=== PATIENT | male | born 1975 | race Caucasian/White ===

== ENCOUNTER 2020-08-31 08:55 | Day surgery (SDC) | payer MEDICAID, SELFPAY ==
[2020-08-28 16:21] VITALS: BMI 27.4
--- NOTE | 2020-08-30 13:51 | P.CONAN_ITS ---
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 Murmur, cardiac Muscle spasm of back OCD (obsessive compulsive disorder) PVD (peripheral vascular disease) Surgical History Surgical History H/O heart artery stent History of aortic coarctation repair Hx of appendectomy Hx of left inguinal hernia repair Social History Social History Smoking Status: Former smoker Smoking Quit Date: 2010 Use of substances other than those prescribed or required for medical reasons: No Advance Directives: No Advance Directives Information Provided: No Advance Directives on File: No Meds Allergies Allergy/AdvReac Type Severity Reaction Status Date / Time risperidone [From Risperdal] Allergy Mild Angioedema Unverified 08/28/20 16:08 aripiprazole Allergy Unknown Anxiety Verified 08/28/20 16:08 strawberry [[place]] Allergy Unknown UNKNOWN Unverified 08/02/20 15:47 ziprasidone [From GEODON] Allergy Unknown WORKS THE Unverified 08/02/20 15:47 OPPOSITE From Effexor AdvReac Mild MAKES Uncoded 08/02/20 15:47 TONGUE FEEL FUNNY Home Medications Medication Instructions Recorded Confirmed Type aspirin [Aspir-81] 81 mg PO DAILY 08/28/20 08/28/20 History buprenorphine-naloxone [Suboxone] 1.5 film SUBLINGUAL DAILY 08/28/20 08/28/20 History clonazepam [Klonopin] 0.25 mg PO BID 08/28/20 08/31/20 History docusate sodium [Colace] 100 mg PO DAILY 08/28/20 08/28/20 History ipratropium-albuterol [DuoNeb] 3 ml INHALATION Q4-6H PRN 08/28/20 08/28/20 History levothyroxine 112 mcg PO DAILY 08/28/20 08/31/20 History naproxen 500 mg PO BID PRN 08/28/20 08/28/20 History sacubitril-valsartan [Entresto] 1 tab PO BID 08/28/20 08/31/20 History Exam Exam Date and Time: August 30, 2020 1351 Height,Weight and Vital Signs: Height 5 ft 6 in Weight 77.111 kg Assessment and Plan Assessment Anesthesia Assessment: Chart Reviewed Documented by User: Rafael Michaud 08/31/20 09:43 [facility] Past Medical History Medical History ADHD Anxiety Aortic valve disease Asthma Back pain Bipolar 1 disorder CAD (coronary artery disease) Cardiomyopathy Coarctation of aorta Constipation Depression Hx of fracture of leg Hx of opioid abuse Hx pulmonary embolism Hypertension Hypothyroidism 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 Did not involve his temp going up. Mult surg since then, w no anesth problems.) Social History Social History Smoking Status: Former smoker Smoking Quit Date: 2010 Use of substances other than those prescribed or required for medical reasons: No Advance Directives: No Advance Directives Information Provided: No Advance Directives on File: No Meds Allergies Allergy/AdvReac Type Severity Reaction Status Date / Time risperidone [From Risperdal] Allergy Mild Angioedema Unverified 08/28/20 16:08 aripiprazole Allergy Unknown Anxiety Verified 08/28/20 16:08 strawberry [[place]] Allergy Unknown UNKNOWN Unverified 08/02/20 15:47 ziprasidone [From GEODON] Allergy Unknown WORKS THE Unverified 08/02/20 15:47 OPPOSITE From Effexor AdvReac Mild MAKES Uncoded 08/02/20 15:47 TONGUE FEEL FUNNY Home Medications Medication Instructions Recorded Confirmed Type aspirin [Aspir-81] 81 mg PO DAILY 08/28/20 08/28/20 History buprenorphine-naloxone [Suboxone] 1.5 film SUBLINGUAL DAILY 08/28/20 08/28/20 History clonazepam [Klonopin] 0.25 mg PO BID 08/28/20 08/31/20 History docusate sodium [Colace] 100 mg PO DAILY 08/28/20 08/28/20 History ipratropium-albuterol [DuoNeb] 3 ml INHALATION Q4-6H PRN 08/28/20 08/28/20 History levothyroxine 112 mcg PO DAILY 08/28/20 08/31/20 History naproxen 500 mg PO BID PRN 08/28/20 08/28/20 History sacubitril-valsartan [Entresto] 1 tab PO BID 08/28/20 08/31/20 History Exam Airway Mallampati Class: II TM Dist: <=3cm Neck ROM: Full Partial: Upper Heart: S4, no murmur. Lungs: clear Assessment and Plan Assessment Anesthesia Assessment: Anesthesia Plan Discussed and Chart Reviewed Final Anesthetic Review NPO: Yes ASA Class: III Final Preanesthetic Review: No Changes in Pt Med Stat, Meds/Allgs Chart Reviewed, Consent Obtained/Reviewed and Anes Risks/Benef Reviewed Patient Risk: High Procedure Risk: Low Assessment/Block/Sedation in SS: Assess/Block/Sedation-SS Anesthetic Plan Anesthetic Plan: GA and Agree w/ Assess. and Plan Disposition: Standard PACU
[2020-08-31] VITALS (7 sets, daily range): BP systolic 112–136; BP diastolic 70–94; PULSE 72–90; RESP 16; TEMP 36.2–36.6; O2SAT 95–97
--- NOTE | 2020-08-31 09:18 | MHC.SHP ---
Pre-Procedural Eval Section A The patient is an INPATIENT: No Changes since office visit: No Cold of Flu in the past 2 weeks, No New Medical Problems, No Changes in Medication and No Patient answered all questions The History & Physical has been completed within 30 days and I have reviewed it.: Yes Section B Chief Complaint: Umbilical Hernia Allergies: Allergies Allergy/AdvReac Type Severity Reaction Status Date / Time risperidone [From Risperdal] Allergy Mild Angioedema Unverified 08/28/20 16:08 aripiprazole Allergy Unknown Anxiety Verified 08/28/20 16:08 strawberry [[place]] Allergy Unknown UNKNOWN Unverified 08/02/20 15:47 ziprasidone [From GEODON] Allergy Unknown WORKS THE Unverified 08/02/20 15:47 OPPOSITE From Effexor AdvReac Mild MAKES Uncoded 08/02/20 15:47 TONGUE FEEL FUNNY Plan Patient has been examined and remains a candidate for the planned procedure
[2020-08-31] MEDS: Lactated Ringers 1,000 ML 50 ML IVCONT (09:40)
--- NOTE | 2020-08-31 10:39 | P.BOP_ITS ---
Brief Operative Note Date of procedure: 08/31/20 Pre-op diagnosis: umbilical hernia Post-op diagnosis: same Procedure: repair of umbilical hernia w/ mesh Implants: Ventralex mesh Surgeon: Wilfrido Cowan MD Anesthesia: GLMA Director Of Casino Marketing: Clara Mayer Estimated blood loss (mL): 5 Condition: stable Disposition: PACU
[2020-08-31] MEDS: oxyCODONE HCl Immed Release 5 MG TABLET 10 MG PO (10:58)
--- NOTE | 2020-08-31 11:22 | HO.POSTANES ---
Post Anesthesia Evaluation Post Anesthesia Evaluation Vital Signs: Vital Signs Temp Pulse Resp BP Pulse Ox 08/31/20 11:16 97.1 F 72 16 122/78 96 08/31/20 11:00 78 16 117/70 96 08/31/20 10:45 75 16 114/77 95 08/31/20 10:40 75 16 112/77 95 08/31/20 10:35 76 16 127/82 95 08/31/20 10:30 97.1 F 78 16 136/90 H 95 08/31/20 09:20 98 F 90 16 131/94 H 97 Anesthesia: General LMA Mental Status: Awake Pain Control: Satisfactory Nausea/Vomiting: None Hydration: Adequate Anesthesia-Related Issues: No Anes. Related Issues
--- NOTE | 2020-08-31 12:20 | OP_ITS ---
SURGEON: Wilfrido Cowan MD INDICATIONS: The patient is a 44-year-old male with note of reducible mass in the umbilicus consistent with umbilical hernia. In view of symptoms, he wanted this repaired. He understood the technique of repair with mesh. He was aware of the risks, benefits, and alternatives. He understood his risk was higher than average because of his multiple comorbid conditions including history of coarctation and heart disease. PREOPERATIVE DIAGNOSIS: Umbilical hernia. POSTOPERATIVE DIAGNOSIS: Umbilical hernia. PROCEDURE PERFORMED: Repair of umbilical hernia with Ventralex mesh. ESTIMATED BLOOD LOSS: COMPLICATIONS: ANESTHESIA: ASSISTANTS: Clara Mayer PA-C. SPECIMENS: DESCRIPTION OF PROCEDURE: He was brought to the operating room, placed supine on the table under general anesthesia via laryngeal mask airway. The periumbilical area was prepped and draped in usual sterile fashion. The surgical time-out was done. The patient received cefazolin 2 g IV preoperatively. I marked the planned line of incision on the supraumbilical margin transversely. This infiltrated with lidocaine 1%. I made an incision using blade #15. This was carried down to full-thickness skin and subcutaneous fat using electrocautery. We proceeded to lift the umbilicus as a flap off the rest of the subcutaneous layer. By doing so, we were able to visualize the hernia, which can contain only fat. We dissected the hernia off the rest of the umbilicus down to the fascial edge. We divided the fibrous adhesions tethering the hernia contents of the fascia using Metzenbaum scissors and electrocautery until we were able to completely free up the entire hernia contents. This was reduced. The defect measured about 1 cm in size. The margins around this were clear on palpation. We proceeded to use a small size Ventralex mesh in this position under the fascial defect. This was flattened as well. I secured this mesh using a Prolene 2-0 suture to each Prolene straps to the fascial edge on both sides. These fascial straps were then trimmed, flushed on the fascial level. I then proceeded to close the fascial defect with a [id number] Maxon 1 stitch. We tacked the umbilicus to the fascia to recreate the dimple. This was done using Dexon 3-0 sutures. The skin closure achieved with Dexon 4-0 subcuticular running stitch. Steri-Strips and dressings were applied. The incision was infiltrated with Marcaine 0.5% for postop analgesia. The patient tolerated the procedure well. There were no complications noted. Initial and final counts of sponges and instruments were correct. Estimated blood loss was minimal. The patient was extubated without difficulty and transferred to recovery room with stable vital signs. MD LATOYA Raphael/RIDDHI / [id number] MTDuJani
== END 2020-08-31 12:05 | disposition home or self-care (01) ==
PROVIDERS: PCP Family Medicine; Visit Provider Surgery
PROC: (CPT 49585; principal; 2020-08-31 10:00)
DX: K42.9 Umbilical hernia without obstruction or gangrene (principal); I10 Essential (primary) hypertension; J45.909 Unspecified asthma, uncomplicated; F11.20 Opioid dependence, uncomplicated; Z79.82 Long term (current) use of aspirin; Z79.899 Other long term (current) drug therapy; Z87.891 Personal history of nicotine dependence; Z88.8 Allergy status to other drugs, medicaments and biological substances; Z86.711 Personal history of pulmonary embolism
CPT/HCPCS: 49585; C1781; J0690; J3010

== ENCOUNTER → 2020-09-13 09:42 | Outpatient (BNVA) | payer MEDICAID, SELFPAY | PROVIDERS: PCP Family Medicine; Visit Provider Surgery | DX: Z09 Encounter for follow-up examination after completed treatment for conditions other than malignant neoplasm (principal); Z87.19 Personal history of other diseases of the digestive system | CPT/HCPCS: 99212 ==

== ENCOUNTER 2020-12-06 08:01 | Outpatient (REF) | payer MEDICAID, SELFPAY ==
--- NOTE | 2020-12-06 | US_ITS ---
EXAMINATION: US ABDOMEN COMPLETE CLINICAL INFORMATION: Right upper quadrant pain. History chronic hep C. COMPARISON: MRI abdomen 12/11/2015, ultrasound abdomen 12/07/2015 TECHNIQUE: Real-time imaging of the abdominal viscera. FINDINGS: PANCREAS: The visualized pancreas is normal in size and contour and echogenicity. Distal body and tail are partly obscured by bowel gas and not completely imaged. There is no pancreatic ductal dilatation. ABDOMINAL AORTA: The proximal abdominal aorta are unremarkable. Mid and distal aorta are obscured by bowel gas and not completely imaged. INFERIOR VENA CAVA: Visualized portions are normal. LIVER: The liver is normal in size and smooth in contour and uniform in echogenicity. There is borderline increased hepatic parenchymal echogenicity. No significant hepatic steatosis. No focal hepatic parenchymal lesion or intrahepatic ductal dilatation. Color Doppler shows portal flow towards the liver. GALLBLADDER: Normal. The gallbladder is physiologically distended without evidence of stones, sludge, polyps, wall thickening or pericholecystic fluid. COMMON BILE DUCT: Normal in caliber measuring 0.4 cm in diameter. RIGHT KIDNEY: Normal. No hydronephrosis. No renal calculi or focal parenchymal lesions. The kidney measures 10.5 cm in maximum dimension. LEFT KIDNEY: Normal. No hydronephrosis. No renal calculi or focal parenchymal lesions. The kidney measures 9.5 cm in maximum dimension. SPLEEN: Normal. The spleen measures 9.2 cm in maximum dimension. FREE FLUID: None. US/US abdomen complete IMPRESSION: 1. Liver normal in size and uniform in echogenicity. No focal parenchymal lesion. 2. Spleen normal in size. No ascites. Portal flow towards the liver. 3. No cholelithiasis or ductal dilatation.
== END 2020-12-06 08:02 | disposition home or self-care (01) ==
LOC: HO.US 08:01
PROVIDERS: PCP Nurse Practitioner Family; Visit Provider Nurse Practitioner Family
DX: R10.11 Right upper quadrant pain (principal)
CPT/HCPCS: 76700

== ENCOUNTER → 2021-07-31 13:43 | Outpatient (BNVA) | payer MEDICAID, SELFPAY | PROVIDERS: Referring Provider Family Medicine; Visit Provider Surgery | DX: R07.81 Pleurodynia (principal) | CPT/HCPCS: 99212 ==

== ENCOUNTER 2023-03-20 08:20 | Observation (INO) | payer MEDICAID, SELFPAY ==
--- NOTE | ~2023-03-20 | XR_ITS ---
EXAMINATION: XR HAND, RIGHT CLINICAL INFORMATION: Injury, pain COMPARISON: None available. TECHNIQUE: PA, lateral, and oblique views of the right hand. FINDINGS: The bones and soft tissues are normal. No fracture. Alignment is anatomic. Joint spaces are maintained. No erosions or soft tissue calcifications. No radiopaque foreign body. XR/XR hand RT 2V IMPRESSION: Normal right hand.
[2023-03-20 08:43] VITALS: BP 146/96; PULSE 97; RESP 16; TEMP 37.7; O2SAT 99; BMI 25.0
[2023-03-20 09:27] LABS: MANUAL DIFF FLAG NO
[2023-03-20 09:30] LABS: Basophils Percent Auto 0.5 % (0-2); Eosinophils Absolute Auto 0.1 X10*3/uL (0.0-0.4); Eosinophils Percent Auto 1.6 % (0-4); Hematocrit 44.1 % (42.0-52.0); Hemoglobin 15.3 g/dl (14.0-18.0); Imm Gran Abs Auto 0.02 X10*3/uL (0.00-0.03); Imm Gran Pct Auto 0.3 % (0.0-0.4); Lymphocytes Absolute Auto 1.1 X10*3/uL (1.2-4.9); Lymphocytes Percent Auto 14.6 % (20-40); Mean Corpuscular HGB Conc 34.7 g/dl (31.0-36.0); Mean Corpuscular Hemoglobin 28.4 pg (27.0-33.0); Mean Corpuscular Volume 81.8 fL (80.0-98.0); Mean Platelet Volume 10.6 fL (9.4-12.4); Monocytes Absolute Auto 0.5 X10*3/uL (0.1-1.2); Monocytes Percent Auto 6.1 % (2-11); Neutrophils Absolute Auto 5.8 x10*3/uL (2.0-8.3); Neutrophils Percent Auto 76.9 % (45-73); Platelet Count 167 X10*3/uL (160-400); Red Blood Count 5.39 X10*6/uL (4.60-5.80); Red Cell Distribution Width 12.9 % (11.0-16.0); White Blood Count 7.5 X10*3/uL (4.8-10.8)
[2023-03-20 09:58] LABS: Lactic Acid 0.9 mmol/L (0.5-2.0)
[2023-03-20 10:00] LABS: Alanine Aminotransferase 20 U/L (0-40); Albumin Level 4.7 g/dL (3.5-5.0); Alkaline Phosphatase 57 U/L (39-117); Anion Gap 12 (12-20); Aspartate Amino Transferase 20 U/L (5-37); Bilirubin Total 0.9 mg/dL (0.0-1.0); Blood Urea Nitrogen 18 mg/dL (9-16); C Reactive Protein 0.94 mg/dL (< or = 0.50); Carbon Dioxide 27 mmol/L (22-29); Chloride 105 mmol/L (96-108); Creatinine Clr Calc Pharmacy 89.5; Estimated Glomerular Filt Rate > 60; Glucose Random 104 mg/dL (60-115); Magnesium 1.7 mg/dL (1.6-2.6); Sodium 140 mmol/L (135-145); Total Protein 7.6 g/dL (6.5-8.0)
[2023-03-20 10:21] LABS: Erythrocyte Sedimentation Rate 2 MM/HR (0-15)
--- NOTE | 2023-03-20 11:15 | ED.GENADULT ---
HPI - General Adult General Chief complaint: Wound/Laceration Stated complaint: cat scratch r index finger Time Seen by Provider: 03/20/23 11:05 Source: patient Mode of arrival: ambulatory Limitations: no limitations History of Present Illness HPI narrative: This is a 47 years old male presented to emergency department complaining of a right index infection he states that he was scratched by a cat yesterday. The patient does have a comorbidity he has history of coarctation of the aorta, he has a cardiac stent. He stated he had a fever this morning as well. Onset (ago): day(s) (1) Location: upper extremity (rt index) Severity: moderate Quality: burning Pain Consistency: constant Relieving factors: none Exacerbating factors: none Related Data Home Medications Medication Instructions Recorded Confirmed aspirin 81 mg tablet,delayed 81 mg PO DAILY 08/28/20 07/31/21 release buprenorphine 4 mg-naloxone 1 mg 1.5 film sublingual DAILY 08/28/20 07/31/21 sublingual film (Suboxone) clonazepam 0.5 mg tablet (Klonopin) 0.25 mg PO BID 08/28/20 07/31/21 docusate sodium 100 mg capsule 100 mg PO DAILY 08/28/20 07/31/21 (Colace) ipratropium 0.5 mg-albuterol 3 mg 3 ml inhalation Q4-6H PRN 08/28/20 07/31/21 (2.5 mg base)/3 mL nebulization Shortness Of Breath Or Wheezing soln levothyroxine 112 mcg capsule 112 mcg PO DAILY 08/28/20 07/31/21 naproxen 500 mg tablet 500 mg PO BID PRN Pain 08/28/20 07/31/21 sacubitril 24 mg-valsartan 26 mg 1 tab PO BID 08/28/20 07/31/21 tablet (Entresto) levothyroxine 112 mcg tablet 112 mcg PO DAILY 07/31/21 07/31/21 tiotropium bromide 18 mcg capsule 1 cap inhalation DAILY 07/31/21 07/31/21 with inhalation device (Spiriva with HandiHaler) Previous Rx's Medication Instructions Recorded oxycodone-acetaminophen 5 mg-325 1 - 2 tab PO Q4-6H PRN pain #30 08/31/20 mg tablet (Percocet) tabs Allergies Allergy/AdvReac Type Severity Reaction Status Date / Time risperidone [From Risperdal] Allergy Mild Angioedema Verified 03/20/23 08:48 aripiprazole Allergy Unknown Anxiety Verified 03/20/23 08:48 strawberry [[place]] Allergy Unknown UNKNOWN Verified 03/20/23 08:48 ziprasidone [From GEODON] Allergy Unknown WORKS THE Verified 03/20/23 08:48 OPPOSITE From Effexor AdvReac Mild MAKES Uncoded 08/02/20 15:47 TONGUE FEEL FUNNY Review of Systems Constitutional: Constitutional: Reports no additional constitutional complaints and Reports fever(s) Respiratory: Respiratory: Reports no additional respiratory complaints Integumentary/Breasts: Skin/Breast: Reports system reviewed and no additional complaints, except as docu [facility] Past Medical History Medical History (Updated 03/20/23 @ 12:01 by Alli Wynn DO) ADHD Anxiety Aortic valve disease Asthma Back pain Bipolar 1 disorder CAD (coronary artery disease) Cardiomyopathy Coarctation of aorta Constipation Depression Hx of fracture of leg Hx of opioid abuse Hx pulmonary embolism Hypertension Hypothyroidism 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 Murmur, cardiac Muscle spasm of back OCD (obsessive compulsive disorder) PVD (peripheral vascular disease) Rib pain Surgical History H/O heart artery stent History of aortic coarctation repair Hx of appendectomy Hx of left inguinal hernia repair Umbilical hernia Family History Family History Maternal Grandmother History of breast cancer Maternal Grandfather History of colon cancer Social History Social History Advance Directives: No Advance Directives Information Provided: Yes Physical Exam ED Vital Signs: Vital Signs - 24 hr 03/20/23 08:43 Temperature 99.8 F Pulse Rate 97 Respiratory Rate 16 Blood Pressure 146/96 H Pulse Oximetry 99 Oxygen Delivery Method Room Air BMI result Body Mass Index 25.0 Const General: cooperative and comfortable Nutritional Appearance: average body habitus Orientation/consciousness: patient oriented x3 HENMT Head: Yes normal to inspection General nose exam: Normal external nose present Face and sinus: Yes normal facial exam Mouth: Normal oral and palatal mucosa present Throat: Yes posterior oropharynx normal Neck Neck: Yes normal visual inspection and Yes full ROM Chest Chest palpation & inspection: normal inspection of the chest Resp Effort & Inspection: normal respiratory effort Cardio Jugular venous distension: no JVD Rate: regular rate Rhythm: regular rhythm GI Inspection: Yes normal to inspection Palpation (GI): Soft to palpation, not firm and nontender Percussion: Yes normal to percussion Neuro General: patient oriented x3 Extrem Other: He has had redness and swelling of the right index he has a streak of redness in the forearm Course Course Course Narrative: presented with redness rt index finger with lymphagitic streak rt forearm will admit Reevaluation(s) Reevaluation #1: seen by Hospitalist Procedures EJ/Peripheral Line Arm L: Time Out Performed: Yes Skin Cleansed in Sterile Fashion: Yes Size (gauge): 20 IV Secured and Dressing Applied: Yes Patient Tolerated Procedure: well Additional Comments: I was ashed by RN to place IV ,RN unable to establish IV access ,under US linear probe cannulated left brachial vein with 20 G catheter good flush good blood return Medical Decision Making Medical Decision Making [facility] Narrative: Patient presented with cellulitis of right index finger with a lymphangitic streak will need admission for IV antibiotic given the fact that he has stent in the left subclavian artery Differential Diagnosis Differential Diagnoses: The differential diagnosis associated with the presentation includes Cellulitis/abscess/sepsis Admission/Observation Consideration of admission/observation: Escalation of care including admission/observation considered Consult Healthcare Provider Management of the patient was discussed with: Hospitalist Lab Data [facility] Lab Attestation statement: I reviewed the patient's lab results. 03/20/23 09:22 03/20/23 09:21 Labs: Lab Results 03/20/23 03/20/23 03/20/23 Range/Units 09:20 09:21 09:21 WBC (4.8-10.8) X10*3/uL RBC (4.60-5.80) X10*6/uL Hgb (14.0-18.0) g/dl Hct (42.0-52.0) % MCV (80.0-98.0) fL MCH (27.0-33.0) pg MCHC (31.0-36.0) g/dl RDW (11.0-16.0) % Plt Count (160-400) X10*3/uL MPV (9.4-12.4) fL Immature Gran % (Auto) (0.0-0.4) % Neut % (Auto) (45-73) % Lymph % (Auto) (20-40) % [place] % (Auto) (2-11) % Eos % (Auto) (0-4) % Baso % (Auto) (0-2) % Lymph # (Auto) (1.2-4.9) X10*3/uL [place] # (Auto) (0.1-1.2) X10*3/uL Eos # (Auto) (0.0-0.4) X10*3/uL Baso # (Auto) (0.0-0.2) X10*3/uL Abs Immat Gran (auto) (0.00-0.03) X10*3/uL Absolute Neuts (auto) (2.0-8.3) x10*3/uL Absolute Nucleated RBC (0.0-0.012) X10*3/uL Nucleated RBC % (auto) (0.0-0.2) /100WBC ESR 2 (0-15) MM/HR Sodium 140 (135-145) mmol/L Potassium 4.0 (3.3-5.1) mmol/L Chloride 105 (96-108) mmol/L Carbon Dioxide 27 (22-29) mmol/L Anion Gap 12 (12-20) BUN 18 H (9-16) mg/dL Creatinine 0.91 (0.5-1.4) mg/dL Estim Creat Clear Calc 89.5 Estimated GFR > 60 Random Glucose 104 (60-115) mg/dL Lactic Acid 0.9 (0.5-2.0) mmol/L Calcium 10.0 (8.4-10.2) mg/dL Magnesium 1.7 (1.6-2.6) mg/dL Total Bilirubin 0.9 (0.0-1.0) mg/dL AST 20 (5-37) U/L ALT 20 (0-40) U/L Alkaline Phosphatase 57 (39-117) U/L C-Reactive Protein 0.94 H (< or = 0.50) mg/dL Total Protein 7.6 (6.5-8.0) g/dL Albumin 4.7 (3.5-5.0) g/dL 05/05/23 Range/Units 09:22 WBC 7.5 (4.8-10.8) X10*3/uL RBC 5.39 (4.60-5.80) X10*6/uL Hgb 15.3 (14.0-18.0) g/dl Hct 44.1 (42.0-52.0) % MCV 81.8 (80.0-98.0) fL MCH 28.4 (27.0-33.0) pg MCHC 34.7 (31.0-36.0) g/dl RDW 12.9 (11.0-16.0) % Plt Count 167 (160-400) X10*3/uL MPV 10.6 (9.4-12.4) fL Immature Gran % (Auto) 0.3 (0.0-0.4) % Neut % (Auto) 76.9 H (45-73) % Lymph % (Auto) 14.6 L (20-40) % [place] % (Auto) 6.1 (2-11) % Eos % (Auto) 1.6 (0-4) % Baso % (Auto) 0.5 (0-2) % Lymph # (Auto) 1.1 L (1.2-4.9) X10*3/uL [place] # (Auto) 0.5 (0.1-1.2) X10*3/uL Eos # (Auto) 0.1 (0.0-0.4) X10*3/uL Baso # (Auto) 0.0 (0.0-0.2) X10*3/uL Abs Immat Gran (auto) 0.02 (0.00-0.03) X10*3/uL Absolute Neuts (auto) 5.8 (2.0-8.3) x10*3/uL Absolute Nucleated RBC 0.000 (0.0-0.012) X10*3/uL Nucleated RBC % (auto) 0.0 (0.0-0.2) /100WBC ESR (0-15) MM/HR Sodium (135-145) mmol/L Potassium (3.3-5.1) mmol/L Chloride (96-108) mmol/L Carbon Dioxide (22-29) mmol/L Anion Gap (12-20) BUN (9-16) mg/dL Creatinine (0.5-1.4) mg/dL Estim Creat Clear Calc Estimated GFR Random Glucose (60-115) mg/dL Lactic Acid (0.5-2.0) mmol/L Calcium (8.4-10.2) mg/dL Magnesium (1.6-2.6) mg/dL Total Bilirubin (0.0-1.0) mg/dL AST (5-37) U/L ALT (0-40) U/L Alkaline Phosphatase (39-117) U/L C-Reactive Protein (< or = 0.50) mg/dL Total Protein (6.5-8.0) g/dL Albumin (3.5-5.0) g/dL Independent Interpretation I performed an independent interpretation of an: Plain X-Ray Interpretation: xray no fx Radiology Impression Discussion of test interpretation with radiology: I have reviewed the radiologist's reading. Discharge Plan Discharge Clinical Impression: Cellulitis of finger, right Patient Disposition: Admitted As Inpatient
--- NOTE | 2023-03-20 11:55 | PM.IMHP ---
History of Present Illness Date of Service: 03/20/23 Chief Complaint: infected right index finger 47-year-old male presents emergency department complaining of painful red finger with streak up his right forearm after being scratched by his cat the day before. He denies fever and chills. 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 Murmur, cardiac Muscle spasm of back OCD (obsessive compulsive disorder) PVD (peripheral vascular disease) Rib pain Family History Maternal Grandmother History of breast cancer Maternal Grandfather History of colon cancer Surgical History H/O heart artery stent History of aortic coarctation repair Hx of appendectomy Hx of left inguinal hernia repair Umbilical hernia Social History Advance Directives: No Advance Directives Information Provided: Yes Meds Allergies Allergy/AdvReac Type Severity Reaction Status Date / Time risperidone [From Risperdal] Allergy Mild Angioedema Verified 03/20/23 08:48 aripiprazole Allergy Unknown Anxiety Verified 03/20/23 08:48 strawberry [[place]] Allergy Unknown UNKNOWN Verified 03/20/23 08:48 ziprasidone [From GEODON] Allergy Unknown WORKS THE Verified 03/20/23 08:48 OPPOSITE From Effexor AdvReac Mild MAKES Uncoded 08/02/20 15:47 TONGUE FEEL FUNNY Active Medications: Current Medications Acetaminophen (Acetaminophen 325 Mg Tablet) 650 mg PO Q6H PRN PRN Reason: Pain, Mild (Pain Scale 1-3) Ondansetron HCl (Ondansetron Hcl 4 Mg/2 Ml Vial) 4 mg IVPUSH Q8H PRN PRN Reason: Nausea and Vomiting Oxycodone HCl (Oxycodone Hcl Immed Release 5 Mg Tablet) 5 mg PO Q6H PRN PRN Reason: Pain, Moderate(Pain Scale 4-6) Sodium Chloride (0.9 % Sodium Chloride Flush 3 Ml Syringe) 3 ml IVFLUSH [facility] Home Medications Medication Instructions Recorded Confirmed Last Taken Type aspirin 81 mg tablet,delayed 81 mg PO DAILY 08/28/20 07/31/21 Unknown History release buprenorphine 4 mg-naloxone 1 mg 1.5 film sublingual DAILY 08/28/20 07/31/21 Unknown History sublingual film (Suboxone) clonazepam 0.5 mg tablet (Klonopin) 0.25 mg PO BID 08/28/20 07/31/21 08/31/20 History docusate sodium 100 mg capsule 100 mg PO DAILY 08/28/20 07/31/21 Unknown History (Colace) ipratropium 0.5 mg-albuterol 3 mg 3 ml inhalation Q4-6H PRN 08/28/20 07/31/21 Unknown History (2.5 mg base)/3 mL nebulization Shortness Of Breath Or Wheezing soln levothyroxine 112 mcg capsule 112 mcg PO DAILY 08/28/20 07/31/21 08/31/20 History naproxen 500 mg tablet 500 mg PO BID PRN Pain 08/28/20 07/31/21 Unknown History sacubitril 24 mg-valsartan 26 mg 1 tab PO BID 08/28/20 07/31/21 08/31/20 History tablet (Entresto) levothyroxine 112 mcg tablet 112 mcg PO DAILY 07/31/21 07/31/21 Unknown History tiotropium bromide 18 mcg capsule 1 cap inhalation DAILY 07/31/21 07/31/21 Unknown History with inhalation device (Spiriva with HandiHaler) Physical Exam Vital Signs and Narrative: Vital Signs: Last Vital Signs Temp 99.8 F 03/20/23 08:43 Pulse 97 03/20/23 08:43 Resp 16 03/20/23 08:43 BP 146/96 H 03/20/23 08:43 Pulse Ox 99 03/20/23 08:43 O2 Del Method Room Air 03/20/23 08:43 BMI result Body Mass Index 25.0 Const: Other: Awake alert no acute distress Resp: Other: Clear to auscultation bilaterally no rales rhonchi wheezes Cardio: Other: No S4; positive S1-S2; no S3 murmurs rubs or gallops GI: Other: Soft nontender nondistended normoactive bowel sounds Skin: Other: Right index finger edematous and erythematous with red line extending from index finger to right antecubital fossa Extrem: Other: No edema bilaterally Results Labs 03/20/23 09:22 03/20/23 09:21 Labs: Laboratory Results - last 24 hr 03/20/23 03/20/23 03/20/23 09:20 09:21 09:21 MCV MCH MCHC RDW Plt Count MPV Immature Gran % (Auto) Neut % (Auto) Lymph % (Auto) [place] % (Auto) Eos % (Auto) Baso % (Auto) Lymph # (Auto) [place] # (Auto) Eos # (Auto) Baso # (Auto) Abs Immat Gran (auto) Absolute Neuts (auto) Absolute Nucleated RBC Nucleated RBC % (auto) ESR 2 Anion Gap 12 Estim Creat Clear Calc 89.5 Estimated GFR > 60 Random Glucose 104 Lactic Acid 0.9 Calcium 10.0 Magnesium 1.7 Total Bilirubin 0.9 AST 20 ALT 20 Alkaline Phosphatase 57 C-Reactive Protein 0.94 H Total Protein 7.6 Albumin 4.7 03/20/23 09:22 MCV 81.8 MCH 28.4 MCHC 34.7 RDW 12.9 Plt Count 167 MPV 10.6 Immature Gran % (Auto) 0.3 Neut % (Auto) 76.9 H Lymph % (Auto) 14.6 L [place] % (Auto) 6.1 Eos % (Auto) 1.6 Baso % (Auto) 0.5 Lymph # (Auto) 1.1 L [place] # (Auto) 0.5 Eos # (Auto) 0.1 Baso # (Auto) 0.0 Abs Immat Gran (auto) 0.02 Absolute Neuts (auto) 5.8 Absolute Nucleated RBC 0.000 Nucleated RBC % (auto) 0.0 ESR Anion Gap Estim Creat Clear Calc Estimated GFR Random Glucose Lactic Acid Calcium Magnesium Total Bilirubin AST ALT Alkaline Phosphatase C-Reactive Protein Total Protein Albumin Imaging Radiologist's Impressions: Impressions Hand X-Ray 03/20/23 09:08 IMPRESSION: Normal right hand. Assessment and Plan (1) Cellulitis of finger, right: Status: Acute (2) Hypothyroidism: Status: Acute (3) Coarctation of aorta: Status: Acute Plan 47-year-old male presents with infected right index finger and streak up right forearm after being bitten by his cat 24 hours prior. He will be admitted for treatment of cellulitis cultures pending 1. Cellulitis right index finger -Zosyn q.6 hours -oxycodone p.r.n. for pain 2. Coarctation of aorta -continue aspirin/Entresto at outpatient dosing -no active issues related to this admission 3. Hypothyroidism -continue levothyroxine at outpatient dosing 4. History of opioid abuse -Addiction Medicine consult -continue Suboxone as they recommend Full code Ambulatory Will require 1 midnight going forward for 24 hours of IV antibiotics. Likely discharge in a.m. on oral therapies Time Spent With Patient Time: Total time managing care of this patient today ____ minutes. Quality Stroke Does the patient have a stroke diagnosis?: No VTE Prior VTE?: No VTE Risk Level:: Medical - low VTE Device Contraindication: Treatment Not Indicated VTE Drug Contraindication: Treatment Not Indicated
[2023-03-20] MEDS: Piperacillin Sodium/Tazobactam 4.5 GM in 0.9 % Sodium Chloride 100 ML IV ×3 (12:33→23:28)
[2023-03-20] MEDS: oxyCODONE HCl Immed Release 5 MG TABLET PO (12:35)
[2023-03-20] MEDS: Acetaminophen 325 MG TABLET 650 MG PO (12:35)
--- NOTE | 2023-03-20 12:39 | MHC.RECOVRN ---
Received Addiction Consult for pt with hx OUD, currently prescribed Suboxone. Chart reviewed. Per Sigifredo, pt is engaged in treatment at the [facility]. Pt to continue Suboxone as prescribed. Discussed with Elena Bazan APRN.
[2023-03-20 13:39] VITALS: BP 100/62; PULSE 83; RESP 14; TEMP 36.7; O2SAT 96
[2023-03-20 15:39] VITALS: BP 125/80; PULSE 76; RESP 18; TEMP 36.3; O2SAT 98
--- NOTE | 2023-03-20 16:09 | PHA.MEDREC ---
Pharmacy Consult ? Medication Reconciliation Pharmacy has completed the medication reconciliation. Confirmed med list with patient. He states he only uses meds for constipation when needed and spiriva is only when he gets sick. Says spiriva was last used about a year ago so it was left off of med list. Claim history states suboxone is 1 film daily but he says 1/2 film bid.
[2023-03-20] MEDS: 0.9 % Sodium Chloride Flush 3 ML SYRINGE IVFLUSH ×2 (16:11→20:37)
[2023-03-20 19:24] VITALS: BP 107/67; PULSE 74; RESP 18; TEMP 36.5; O2SAT 98
[2023-03-20] MEDS: Melatonin 3 MG TABLET 6 MG PO (20:36)
[2023-03-21 03:29] VITALS: BP 102/58; PULSE 71; RESP 14; TEMP 37.1; O2SAT 99
[2023-03-21] MEDS: Levothyroxine Sodium 112 MCG TABLET PO (05:23)
[2023-03-21] MEDS: Piperacillin Sodium/Tazobactam 4.5 GM in 0.9 % Sodium Chloride 100 ML IV (05:23)
[2023-03-21 08:00] VITALS: BP 103/62; PULSE 96; RESP 16; TEMP 37.1; O2SAT 97
[2023-03-21] MEDS: Sacubitril/Valsartan 24/26 1 TAB TABLET PO (08:26)
[2023-03-21] MEDS: Buprenorphine/Naloxone 4/1 mg FILM 1 FILM SUBLINGUAL (08:26)
--- NOTE | 2023-03-21 09:24 | PM.DS ---
DS: Providers Provider Date of Service: 03/21/23 Date of admission: 03/20/23 11:48 Date of discharge: 03/21/23 Primary care physician: Elayne Alfredo MD Consults: 03/20/23 12:04 Addiction Medicine Routine Consulting Provider: Addiction Covering Reason for consultation: History of opioid abuse on Suboxone Has provider been notified: No DS: Diagnosis Discharge Diagnosis (1) Cellulitis of finger, right: Status: Acute (2) Hypothyroidism: Status: Acute (3) Coarctation of aorta: Status: Acute DS: Summary Hospital Course Hospital Course: 47-year-old male presents emergency department complaining of painful red finger with streak up his right forearm after being scratched by his cat the day before.? He denies fever and chills. Hospital Course Admitted to hospital and started on Zosyn q.6 hours. After 24 hours, all erythema has resolved and he has full range of motion. He has remained afebrile. At this time he is medically acceptable to be discharged to complete 1 week of Augmentin. He will follow-up with his PCP in 1 week if there is no improvement Time Spent with Patient Time attestation: Total time managing care of this patient today ____ minutes. Discharge coordination time: Greater than 30 minutes Quality: Safe Use of Opioids Does Pt have an Active Cancer Diagnosis on the Problem List?: No Quality: Stroke Does the patient have a stroke diagnosis?: No Physical Exam Vital Signs: Vital Signs: Last Vital Signs Temp 98.8 F 03/21/23 08:00 Pulse 96 03/21/23 08:00 Resp 16 03/21/23 08:00 BP 103/62 03/21/23 08:00 Pulse Ox 97 03/21/23 08:00 O2 Del Method Room Air 03/21/23 08:00 BMI result Body Mass Index 25.0 Const: Other: Awake alert no acute distress Resp: Other: Clear to auscultation bilaterally no rales rhonchi wheezes Cardio: Other: No S4; positive S1-S2; no S3 murmurs rubs or gallops GI: Other: Soft nontender nondistended normoactive bowel sounds Skin: Other: Right index finger without focal findings. All erythema resolved. Full range of motion Extrem: Other: No edema bilaterally DS: Data Data Completed and Pending Labs on day of discharge: Laboratory Results - last 24 hr 05/05/23 05/05/23 05/05/23 09:20 09:21 09:21 WBC RBC Hgb Hct MCV MCH MCHC RDW Plt Count MPV Immature Gran % (Auto) Neut % (Auto) Lymph % (Auto) [place] % (Auto) Eos % (Auto) Baso % (Auto) Lymph # (Auto) [place] # (Auto) Eos # (Auto) Baso # (Auto) Abs Immat Gran (auto) Absolute Neuts (auto) Absolute Nucleated RBC Nucleated RBC % (auto) ESR 2 Sodium 140 Potassium 4.0 Chloride 105 Carbon Dioxide 27 Anion Gap 12 BUN 18 H Creatinine 0.91 Estim Creat Clear Calc 89.5 Estimated GFR > 60 Random Glucose 104 Lactic Acid 0.9 Calcium 10.0 Magnesium 1.7 Total Bilirubin 0.9 AST 20 ALT 20 Alkaline Phosphatase 57 C-Reactive Protein 0.94 H Total Protein 7.6 Albumin 4.7 03/20/23 09:22 WBC 7.5 RBC 5.39 Hgb 15.3 Hct 44.1 MCV 81.8 MCH 28.4 MCHC 34.7 RDW 12.9 Plt Count 167 MPV 10.6 Immature Gran % (Auto) 0.3 Neut % (Auto) 76.9 H Lymph % (Auto) 14.6 L [place] % (Auto) 6.1 Eos % (Auto) 1.6 Baso % (Auto) 0.5 Lymph # (Auto) 1.1 L [place] # (Auto) 0.5 Eos # (Auto) 0.1 Baso # (Auto) 0.0 Abs Immat Gran (auto) 0.02 Absolute Neuts (auto) 5.8 Absolute Nucleated RBC 0.000 Nucleated RBC % (auto) 0.0 ESR Sodium Potassium Chloride Carbon Dioxide Anion Gap BUN Creatinine Estim Creat Clear Calc Estimated GFR Random Glucose Lactic Acid Calcium Magnesium Total Bilirubin AST ALT Alkaline Phosphatase C-Reactive Protein Total Protein Albumin Discharge Plan Discharge Anticipated Discharge Date/Time: 03/21/23 09:21 Patient Disposition: Home, Self-Care Discharge Diagnosis: Left ring finger cellulitis Referrals: Elayne Alfredo MD [Primary Care Provider] - 1 Week Discharge Medications: New amoxicillin-pot clavulanate 875-125 mg tablet 1 tab PO BID Qty: 14 0RF Continued docusate sodium [Colace] 100 mg Capsule 100 mg PO BID PRN (Reason: Constipation) naproxen 500 mg Tablet 500 mg PO BID PRN (Reason: Pain) Entresto 24-26 mg Tablet 1 tab PO BID melatonin 5 mg tablet 5 mg PO BEDTIME buprenorphine-naloxone [Suboxone] 8-2 mg film 0.5 film sublingual BID sennosides [senna] 8.6 mg tablet 8.6 mg PO BEDTIME PRN (Reason: Constipation) clonazepam 0.5 mg tablet 0.5 mg PO BID PRN (Reason: Anxiety) albuterol sulfate [ProAir HFA] 90 mcg/actuation HFA aerosol inhaler 2 puff INHALATION Q4-6H PRN (Reason: Shortness Of Breath Or Wheezing) Excedrin Migraine 250-250-65 mg Tablet 2 tab PO Q6H PRN (Reason: Migraine Headache) levothyroxine 112 mcg tablet 112 mcg PO DAILY@0600 Discharge Orders: Discharge Order (Routine); Ordered 03/21/23 Ordered By: Alli Wynn Diet: Advance to usual diet Activity on Discharge: As tolerated Stand Alone Forms: Patient Portal Discharge page Care Plan Goals: Resume all pre-hospital medications Health Concerns: Augmentin 875 twice daily for 7 days Plan of Treatment: Follow-up with PCP in 1 week if no improvement Assessment: See discharge summary
--- NOTE | 2023-03-21 09:35 | MHC.CM.PN ---
PT DISCHARGED HOME TODAY WITH NO SERVICES VIA PRIVATE TRANSPORT
== END 2023-03-21 09:55 | disposition home or self-care (01) ==
LOC: HO.ED 11:43 → HO.EDOVER 11:55 → HO.S3 12:01
PROVIDERS: Physician Assistant Medical; Admitting Provider Hospitalist; Emergency Provider Emergency Medicine; PCP Family Medicine; Visit Provider Hospitalist
DX: L03.011 Cellulitis of right finger (principal); I10 Essential (primary) hypertension; E03.9 Hypothyroidism, unspecified; Q25.1 Coarctation of aorta; F11.20 Opioid dependence, uncomplicated; Z95.2 Presence of prosthetic heart valve; Z79.82 Long term (current) use of aspirin; Z79.899 Other long term (current) drug therapy
CPT/HCPCS: 36415; 73120; 80053; 83605; 83735; 85025; 85652; 86140; 87040; 96360; 96365; 96366; 96375; 99221; 99285; J2543

== ENCOUNTER 2024-09-10 19:00 | Emergency (ER) | payer MEDICAID, SELFPAY ==
--- NOTE | ~2024-09-10 | XR_ITS ---
EXAMINATION: XR CHEST 2 VIEWS CLINICAL INFORMATION: Cough. COMPARISON: Radiographs dated 09/21/2019 TECHNIQUE: Frontal and lateral views of the chest were obtained. FINDINGS: The heart, great vessels, pulmonary vasculature and mediastinum are normal. A stent is again seen in the proximal descending thoracic aorta. The lungs show no focal infiltrate, effusion or pneumothorax. There is no acute osseous abnormality. XR/XR chest 2V IMPRESSION: No active cardiopulmonary disease. Electronically signed by: Mark Anthony Cortes MD 09/10/2024 09:40 PM EDT RP
[2024-09-10 19:22] VITALS: BP 120/79; PULSE 117; RESP 18; TEMP 39.3; O2SAT 96; BMI 25.6
--- NOTE | 2024-09-10 19:23 | ED_ITS ---
HPI - General Adult General Chief complaint: Upper Respiratory Symptoms Stated complaint: congested cough, runny nose, h/a Time Seen by Provider: 09/10/24 20:58 Source: patient Mode of arrival: ambulatory Limitations: no limitations History of Present Illness ED Provider: ANTON FRANCO narrative: 48 yo male with PMH of asthma, opiate use disorder, HTN, CAD s/p stent, hypothyroidism, s/p repair of aorta coarctation here with c/o cough, chills, headaches, not feeling well for the past 1 week. He was exposed to his son who has been dx with pneumonia. Patient is able to take his medications, eat and drink. He did not take anything at home prior to arrival for fever. He denies chest pain. They did not travel or have exposure prior to this illness. MD complaint: URI Onset (ago): week(s) (1) Location: chest Radiation: non-radiation Severity: moderate Relieving factors: rest Exacerbating factors: movement Associated symptoms: cough, fever/chills, headaches, loss of appetite, malaise and shortness of breath Treatments prior to arrival: none Related Data Home Medications ?Medication ?Instructions ?Recorded ?Confirmed docusate sodium 100 mg capsule 100 mg PO BID PRN Constipation 08/28/20 03/20/23 (Colace) naproxen 500 mg tablet 500 mg PO BID PRN Pain 08/28/20 03/20/23 sacubitril 24 mg-valsartan 26 mg 1 tab PO BID 08/28/20 03/20/23 tablet (Entresto) levothyroxine 112 mcg tablet 112 mcg PO DAILY@0600 07/31/21 03/20/23 albuterol sulfate 90 mcg/actuation 2 puff inhalation Q4-6H PRN 03/20/23 03/20/23 aerosol inhaler (ProAir HFA) Shortness Of Breath Or Wheezing yxphwky-eilsqvevewoig-npmaxtct 250 2 tab PO Q6H PRN Migraine Headache 03/20/23 03/20/23 mg-250 mg-65 mg tablet (Excedrin Migraine) buprenorphine 8 mg-naloxone 2 mg 0.5 film sublingual BID 03/20/23 03/20/23 sublingual film (Suboxone) clonazepam 0.5 mg tablet 0.5 mg PO BID PRN Anxiety 03/20/23 03/20/23 melatonin 5 mg tablet 5 mg PO BEDTIME 03/20/23 03/20/23 sennosides 8.6 mg tablet (senna) 8.6 mg PO BEDTIME PRN Constipation 03/20/23 03/20/23 Previous Rx's ?Medication ?Instructions ?Recorded amoxicillin 875 mg-potassium 1 tab PO BID #14 tabs 03/21/23 clavulanate 125 mg tablet cefuroxime axetil 500 mg tablet 500 mg PO BID 10 days #20 tabs 09/10/24 doxycycline hyclate 100 mg capsule 100 mg PO BID 10 days #20 caps 09/10/24 Allergies Allergy/AdvReac Type Severity Reaction Status Date / Time risperidone [From Risperdal] Allergy Mild Angioedema Verified 09/10/24 19:23 aripiprazole Allergy Unknown Anxiety Verified 09/10/24 19:23 strawberry [[place]] Allergy Unknown UNKNOWN Verified 09/10/24 19:23 ziprasidone [From GEODON] Allergy Unknown WORKS THE Verified 09/10/24 19:23 OPPOSITE From Effexor AdvReac Mild MAKES Uncoded 09/10/24 19:23 TONGUE FEEL FUNNY Review of Systems 2 Review of Systems: Constitutional : No Fever, pos Chills ENT/Mouth : No Hoarseness, No sore throat, No Rhinorrhea Eyes: No Redness, No Discharge, No Vision Changes Cardiovascular : No Chest Pain, positive SOB, positive Dyspnea on Exertion, No Edema Respiratory : positive Cough, pos Sputum, positive Wheezing, Gastrointestinal : No Nausea, No Vomiting, No Diarrhea, No abdominal Pain Genitourinary : No Dysuria, No Hematuria Musculoskeletal : No joint pain, No Myalgias Skin : No rash Neuro : No Weakness, No Numbness, No Headache Psych : No anxiety, depression All other systems reviewed and are negative [facility] Past Medical History Attestation statement: The following information was validated with the patient. 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 Hx pulmonary embolism Constipation Asthma ADHD Depression Anxiety Bipolar 1 disorder OCD (obsessive compulsive disorder) CAD (coronary artery disease) Hypertension Surgical History Umbilical hernia Hx of left inguinal hernia repair H/O heart artery stent Hx of appendectomy History of aortic coarctation repair Family History Family History Maternal Grandmother History of breast cancer Maternal Grandfather History of colon cancer Social History Social History Household Members: Spouse and Family Household Members Other:: temporarily with sister Housing: House Do you presently have visiting nurse or other home services: No Alcohol intake: unknown Patient Tobacco Use Status: Former Tobacco user Tobacco use type: Cigarette Smoked in Last 30 Days: No Second Hand Smoke Exposure: No Use of substances other than those prescribed or required for medical reasons: No Advance Directives: No Advance Directives Information Provided: No Physical Exam ED Vital Signs: Vital Signs - 24 hr 09/10/24 19:22 09/10/24 19:55 09/10/24 21:50 Temperature 102.7 F H 102.8 F H 99.0 F Pulse Rate 117 H 104 H 78 Respiratory Rate 18 15 14 Blood Pressure 120/79 108/69 95/58 L Pulse Oximetry 96 96 95 Oxygen Delivery Method Room Air Room Air Room Air 09/10/24 22:05 09/10/24 22:51 09/10/24 23:11 Temperature 98.9 F Pulse Rate 81 Respiratory Rate 17 Blood Pressure 123/77 123/77 Pulse Oximetry 98 98 Oxygen Delivery Method Room Air Room Air 09/10/24 23:11 Temperature 98.9 F Pulse Rate 81 Respiratory Rate 17 Blood Pressure 123/77 Pulse Oximetry 98 Oxygen Delivery Method Room Air BMI result Body Mass Index 25.6 Appearance: Alert. Oriented X3. No acute distress. Eyes: Pupils equal, round and reactive to light. ENT: Pharynx normal. Neck: Normal inspection. Neck supple. CVS: Normal heart rate and rhythm. Pulses normal. Respiratory: No respiratory distress. Breath sounds diminished LL base, no wheezes noted Abdomen: Soft and nontender. Skin: Skin warm and dry. Normal skin color. Normal skin turgor. Extremities: No lower extremity edema. No calf ttp Neuro: Oriented X 3. No motor deficit. No sensory deficit. Course Course Course Narrative: This is a Rapid Medical Examination (RME) performed by Inocencio Heck PA-C in triage. Full HPI, ROS, assessment and treatment plan per primary provider in the Main ED. 48 yo male hx of asthma-COPD, previous tobacco smoker here for eval of cough, congestion, headache, chills x2 wks. no documented fever. trialing tylenol/ motrin at home. son recently ill with pneumonia. +febrile and tachycardic Plan: viral swabs, cxr, baisc labs. tylenol given in triage. Medications Administered Discontinued Medications Generic Name Dose Route Start Last Admin Trade Name Freq PRN Reason Stop Dose Admin Acetaminophen 975 mg 09/10/24 19:27 09/10/24 19:30 Acetaminophen 325 Mg Tablet PO 09/10/24 19:28 975 mg ONCE ONE Administration Albuterol Sulfate 2 puff 09/10/24 21:18 09/10/24 21:56 Albuterol Sulfate 90 Mcg 8 Gm Inhaler INHALE 09/10/24 21:19 2 puff ONCE ONE Administration Ceftriaxone Sodium 1 gm 09/10/24 21:17 09/10/24 22:01 Ceftriaxone Sodium 1 Gm Vial IVPUSH 09/10/24 21:18 1 gm ONCE ONE Administration Doxycycline Monohydrate 100 mg 09/10/24 21:17 09/10/24 21:55 Doxycycline Monohydrate 100 Mg Capsule PO 09/10/24 21:18 100 mg ONCE ONE Administration Ibuprofen 400 mg 09/10/24 20:21 09/10/24 20:23 Ibuprofen 400 Mg Tablet PO 09/10/24 20:22 400 mg ONCE ONE Administration Prednisone 40 mg 09/10/24 21:17 09/10/24 21:55 Prednisone 20 Mg Tablet PO 09/10/24 21:18 40 mg ONCE ONE Administration Medical Decision Making Medical Decision Making MDM Narrative: 48 yo male with PMH of asthma, opiate use disorder, HTN, CAD s/p stent, hypothyroidism here with c/o URI symptoms and pneumonia exposure at this time will need basic labs, EKG, CXR for pneumonia, viral panel. He is tolerating PO, he has no hypoxia or increased work of breathing. Will give first dose of antibiotics in the ED Differential Diagnosis Differential Diagnoses: The differential diagnosis associated with the presentation includes URI, viral syndrome, pneumonia Admission/Observation Consideration of admission/observation: Escalation of care including admission/observation considered no hypoxia, BP normal, stable for DC feels well, tolerating PO Lab Data MDM Lab Attestation statement: I reviewed the patient's lab results. 09/10/24 19:38 09/10/24 19:38 Labs: Lab Results 09/10/24 Range/Units 19:38 WBC 6.2 (4.8-10.8) X10*3/uL RBC 4.67 (4.60-5.80) X10*6/uL Hgb 13.7 L (14.0-18.0) g/dl Hct 38.5 L (42.0-52.0) % MCV 82.4 (80.0-98.0) fL MCH 29.3 (27.0-33.0) pg MCHC 35.6 (31.0-36.0) g/dl RDW 11.7 (11.0-16.0) % Plt Count 159 L (160-400) X10*3/uL MPV 9.8 (9.4-12.4) fL Immature Gran % (Auto) 0.5 H (0.0-0.4) % Neut % (Auto) 70.4 (45-73) % Lymph % (Auto) 16.9 L (20-40) % [place] % (Auto) 10.9 (2-11) % Eos % (Auto) 1.0 (0-4) % Baso % (Auto) 0.3 (0-2) % Lymph # (Auto) 1.0 L (1.2-4.9) X10*3/uL [place] # (Auto) 0.7 (0.1-1.2) X10*3/uL Eos # (Auto) 0.1 (0.0-0.4) X10*3/uL Baso # (Auto) 0.0 (0.0-0.2) X10*3/uL Abs Immat Gran (auto) 0.03 (0.00-0.03) X10*3/uL Absolute Neuts (auto) 4.4 (2.0-8.3) x10*3/uL Absolute Nucleated RBC 0.000 (0.0-0.012) X10*3/uL Nucleated RBC % (auto) 0.0 (0.0-0.2) /100WBC Sodium 136 (135-145) mmol/L Potassium 3.6 (3.3-5.1) mmol/L Chloride 100 (96-108) mmol/L Carbon Dioxide 27 (22-29) mmol/L Anion Gap 13 (12-20) BUN 16 (9-16) mg/dL Creatinine 0.96 (0.5-1.4) mg/dL Estim Creat Clear Calc 83.9 Estimated GFR > 60 Random Glucose 115 (60-115) mg/dL Calcium 9.2 D (8.4-10.2) mg/dL Magnesium 2.1 (1.6-2.6) mg/dL Total Bilirubin 0.9 (0.0-1.0) mg/dL AST 41 H (5-37) U/L ALT 41 H (0-40) U/L Alkaline Phosphatase 40 (39-117) U/L Total Protein 7.9 (6.5-8.0) g/dL Albumin 4.4 (3.5-5.0) g/dL Lipase 21 (8-78) U/L Influenza Type A (PCR) NEGATIVE (Negative) Influenza Type B (PCR) NEGATIVE (Negative) RSV RNA Qual (PCR) NEGATIVE (Negative) SARS-CoV-2 RNA (RT-PCR) NEGATIVE (Negative) Independent Interpretation I performed an independent interpretation of an: Plain X-Ray (+ LL pneumonia) Radiology Impression Discussion of test interpretation with radiology: I have reviewed the radiologist's reading. External Record Review External record reviewed: Outpatient record Prescription Management I considered prescription management with: Antibiotic Discharge Plan Discharge Clinical Impression: Pneumonia Patient Disposition: Home, Self-Care Instructions: Community Acquired Pneumonia (ED) Additional Instructions: negative for flu and covid hemoglobin slightly lower than usual 13.7 make sure your doctor monitors this your oxygen levels were normal you have a left lower lobe pneumonia on chest xray return at any time for worsening symptoms such as dizziness, weakness, unable to eat or drink, vomiting, difficulty breathing, chest pain, low blood pressures or any other concerns. Prescriptions: New doxycycline hyclate 100 mg capsule 100 mg PO BID 10 Days Qty: 20 0RF cefuroxime axetil 500 mg tablet 500 mg PO BID 10 Days Qty: 20 0RF No Action docusate sodium [Colace] 100 mg Capsule 100 mg PO BID PRN (Reason: Constipation) naproxen 500 mg Tablet 500 mg PO BID PRN (Reason: Pain) Entresto 24-26 mg Tablet 1 tab PO BID melatonin 5 mg tablet 5 mg PO BEDTIME buprenorphine-naloxone [Suboxone] 8-2 mg film 0.5 film sublingual BID sennosides [senna] 8.6 mg tablet 8.6 mg PO BEDTIME PRN (Reason: Constipation) clonazepam 0.5 mg tablet 0.5 mg PO BID PRN (Reason: Anxiety) albuterol sulfate [ProAir HFA] 90 mcg/actuation HFA aerosol inhaler 2 puff INHALATION Q4-6H PRN (Reason: Shortness Of Breath Or Wheezing) Excedrin Migraine 250-250-65 mg Tablet 2 tab PO Q6H PRN (Reason: Migraine Headache) amoxicillin-pot clavulanate 875-125 mg tablet 1 tab PO BID Qty: 14 0RF levothyroxine 112 mcg tablet 112 mcg PO DAILY@0600 Interventions: ED Discharge Assessment Last Done: 09/10/24 23:11 Discharge Date/Time: 09/10/24 23:11 Print Language: Bruneian
[2024-09-10] MEDS: Acetaminophen 325 MG TABLET 975 MG PO (19:30)
[2024-09-10 19:42] LABS: MANUAL DIFF FLAG NO
[2024-09-10 19:44] LABS: Basophils Percent Auto 0.3 % (0-2); Eosinophils Absolute Auto 0.1 X10*3/uL (0.0-0.4); Hematocrit 38.5 % (42.0-52.0); Hemoglobin 13.7 g/dl (14.0-18.0); Imm Gran Abs Auto 0.03 X10*3/uL (0.00-0.03); Imm Gran Pct Auto 0.5 % (0.0-0.4); Lymphocytes Percent Auto 16.9 % (20-40); Mean Corpuscular HGB Conc 35.6 g/dl (31.0-36.0); Mean Corpuscular Hemoglobin 29.3 pg (27.0-33.0); Mean Corpuscular Volume 82.4 fL (80.0-98.0); Mean Platelet Volume 9.8 fL (9.4-12.4); Monocytes Absolute Auto 0.7 X10*3/uL (0.1-1.2); Monocytes Percent Auto 10.9 % (2-11); Neutrophils Absolute Auto 4.4 x10*3/uL (2.0-8.3); Neutrophils Percent Auto 70.4 % (45-73); Platelet Count 159 X10*3/uL (160-400); Red Blood Count 4.67 X10*6/uL (4.60-5.80); Red Cell Distribution Width 11.7 % (11.0-16.0); White Blood Count 6.2 X10*3/uL (4.8-10.8)
[2024-09-10 19:55] VITALS: BP 108/69; PULSE 104; RESP 15; TEMP 39.3; O2SAT 96
[2024-09-10 20:05] LABS: Alanine Aminotransferase 41 U/L (0-40); Albumin Level 4.4 g/dL (3.5-5.0); Alkaline Phosphatase 40 U/L (39-117); Anion Gap 13 (12-20); Aspartate Amino Transferase 41 U/L (5-37); Bilirubin Total 0.9 mg/dL (0.0-1.0); Blood Urea Nitrogen 16 mg/dL (9-16); Calcium 9.2 mg/dL (8.4-10.2); Carbon Dioxide 27 mmol/L (22-29); Chloride 100 mmol/L (96-108); Creatinine Clr Calc Pharmacy 83.9; Estimated Glomerular Filt Rate > 60; Glucose Random 115 mg/dL (60-115); Lipase 21 U/L (8-78); Magnesium 2.1 mg/dL (1.6-2.6); Potassium 3.6 mmol/L (3.3-5.1); Sodium 136 mmol/L (135-145); Total Protein 7.9 g/dL (6.5-8.0)
[2024-09-10] MEDS: Ibuprofen 400 MG TABLET PO (20:23)
[2024-09-10 20:27] LABS: Influenza A PCR NEGATIVE (Negative); Influenza B PCR NEGATIVE (Negative); Resp Syncy Virus RNA Qual PCR NEGATIVE (Negative); SARS COV2 PCR INHOUSE NEGATIVE (Negative)
--- NOTE | 2024-09-10 21:15 | PC.NURSE ---
pt from home, a&ox4, respirations even and unlabored. pt reports x3 weeks of cough, congestion and sore throat. pt reports his son at home is sick at this time. pt denies sob, chest pain, n/v/d. provider aware of pt fever, pt medciated per jan.
[2024-09-10 21:50] VITALS: BP 95/58; PULSE 78; RESP 14; TEMP 37.2; O2SAT 95
[2024-09-10] MEDS: Doxycycline Monohydrate 100 MG CAPSULE PO (21:55)
[2024-09-10] MEDS: predniSONE 20 MG TABLET 40 MG PO (21:55)
[2024-09-10] MEDS: Albuterol Sulfate 90 MCG 8 GM INHALER 2 PUFF INHALE (21:56)
[2024-09-10] MEDS: cefTRIAXone sodium 1 GM VIAL IVPUSH (22:01)
--- NOTE | 2024-09-10 22:02 | PC.NURSE ---
20G placed in left forearm, pt medicated per jan, per Blood cultures not needed prior to antibiotic administration
[2024-09-10 22:05] VITALS: PULSE 98; O2SAT 98
[2024-09-10 22:51] VITALS: BP 123/77
[2024-09-10 23:11] VITALS: BP 123/77; PULSE 81; RESP 17; TEMP 37.2; O2SAT 98
== END 2024-09-10 23:11 | disposition home or self-care (01) ==
PROVIDERS: Physician Assistant Medical; Emergency Provider Emergency Medicine
DX: J18.9 Pneumonia, unspecified organism (principal); R50.9 Fever, unspecified; R06.02 Shortness of breath; Z03.818 Encounter for observation for suspected exposure to other biological agents ruled out; J45.909 Unspecified asthma, uncomplicated; Z87.891 Personal history of nicotine dependence
CPT/HCPCS: 0241U; 36415; 71046; 80053; 83690; 83735; 85025; 96374; 99284; 99285; J0696

== ENCOUNTER 2025-06-13 10:46 | Outpatient (REF) | payer MEDICAID, SELFPAY ==
--- OUTSIDE RECORDS SUMMARY | 2025-06-13 11:58 | XMS_ITS | Encounter Summary ---
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 Name Role Phone Elayne Alfredo MD Primary Care Provider [phone] Encounter Details Date Type Department Care Team ([facility] st Contact Info) Description 03/07/2024 Telephone [facility] [address] [place], [place] [phone] Elayne Alfredo MD [address] [place], [place] [phone] Social History Tobacco Use Types Packs/Day Years Used Date Smoking Tobacco: Former Cigarettes Passive Smoke Exposure: Past Smokeless Tobacco: Never Depression Answer Date Recorded Patient Health Questionnaire-9 Score 2 06/04/2023 Housing Stability Answer Date Recorded What is your housing situation today? I do not have housing (Staying with others, in a hotel, in a custodial, living outside on the street, on a beach, in a car, or in a park 02/25/[address] you li ve. Do you have problems with any of the following? None of the above 02/25/2024 Food Insecurity Answer Date Recorded Within the past 12 months, y ou worried that your food would run out before you got money to buy more: Sometimes True 2023 Within the past 12 months,th e food you bought just didn't last and you didn't have enough money to get more: Sometimes True 02/25/2024 Transportation Answer Date Recorded In the past 12 months, has l ack of transportation kept you from medical appts, meetings, work or from getting things needed for daily living? Yes, it has kept me from medical appointments or getting medications. 02/25/2024 Utilities Answer Date Recorded In the past 12 months, has t he electric, gas, oil or water company threatened to shut off services in your home? No 09/04/2023 Depression Answer Date Recorded Patient Health Questionnaire-2 Score 1 06/04/2023 Sex and Gender Information Value Date Recorded Sex Assigned at Male 09/15/2022 10:15 AM EDT Legal Sex Male 10:15 AM EDT Gender Identity Male 09/15/2022 10:15 AM EDT Sexual Orientation Straight 09/15/2022 10 :15 AM EDT documented as of this encounter Miscellaneous Notes * Telephone Encounter - Umesh Иван - 03/07/2024 9:56 AM EDT Tc from pt requested to r/s today's appt with pcp but theres nothing available, advised pt to call back March 16 for May. documented in this encounter Plan of Treatment Upcoming Encounters Date Type Department Care Team (Late st Contact Info) Description 06/19/2025 1:15 PM EDT Office Visit [facility] [address] [place] [phone] Elayne Alfredo MD [address] [place] [phone] 08/08/2025 1:30 PM EDT Office Visit [facility] [address] [place] [phone] Edgar Tejada MD [address] [place] [phone] documented as of this encounter Visit Diagnoses Not on filedocumented in this encounter Additional Health Concerns Assessment Noted Time PHQ-9 Depression Total Score: 2 06/04/20 23 11:01 AM EDT documented as of this encounter Care Teams Grain Broker And Market Operator Relationship Specialty Start Date End Date Elayne Alfredo MD [address] [place] [phone] PCP - General Family Medicine 11/16/18 documented as of this encounter
[2025-06-13 13:08] LABS: MANUAL DIFF FLAG NO
[2025-06-13 13:25] LABS: Hematocrit 39.7 % (42.0-52.0); Hemoglobin 14.0 g/dl (14.0-18.0); Imm Gran Abs Auto 0.02 X10*3/uL (0.00-0.03); Imm Gran Pct Auto 0.3 % (0.0-0.4); Lymphocytes Absolute Auto 1.5 X10*3/uL (1.2-4.9); Mean Corpuscular HGB Conc 35.3 g/dl (31.0-36.0); Mean Corpuscular Hemoglobin 30.0 pg (27.0-33.0); Mean Corpuscular Volume 85.0 fL (80.0-98.0); NRBC Abs Auto 0.000 X10*3/uL (0.0-0.012); NRBC Pct Auto 0.0 /100WBC (0.0-0.2); Platelet Count 175 X10*3/uL (160-400); Red Blood Count 4.67 X10*6/uL (4.60-5.80); Reticulocytes Absolute 0.125 X10*6/uL (0.026-0.095); White Blood Count 5.8 X10*3/uL (4.8-10.8)
[2025-06-13 13:34] LABS: Hemoglobin A1C 118.2816 umol/L; Total Hemoglobin (HGBA1C) 3666.4487 umol/L
[2025-06-13 13:56] LABS: Alanine Aminotransferase 20 U/L (0-40); Albumin Level 4.7 g/dL (3.5-5.0); Alkaline Phosphatase 46 U/L (39-117); Anion Gap 13 (12-20); Aspartate Amino Transferase 28 U/L (5-37); Blood Urea Nitrogen 19 mg/dL (9-16); Calcium 9.5 mg/dL (8.4-10.2); Carbon Dioxide 26 mmol/L (22-29); Chloride 106 mmol/L (96-108); Cholesterol 169 mg/dL (<200); Estimated Glomerular Filt Rate > 60; HDL Cholesterol 51 mg/dL (>40); Iron 119 mcg/dL (45-160); Percent Iron Saturation 44 % (15-50); Potassium 3.7 mmol/L (3.3-5.1); Sodium 141 mmol/L (135-145); Total Iron Binding Capacity 272 mcg/dL (228-428); Total Protein 7.6 g/dL (6.5-8.0); Triglycerides 200 mg/dL (<150); Unsaturated Iron Binding 153 ug/dL
[2025-06-13 14:06] LABS: Ferritin 485 ng/mL (20-250)
[2025-06-13 14:11] LABS: Vitamin B12 411 pg/mL (200-900)
[2025-06-13 14:43] LABS: CT PCR Urine NOT DETECTED (Not Detect.); NG PCR Urine NOT DETECTED (Not Detect.)
[2025-06-13 15:06] LABS: Folate 10.1 ng/mL (> or = 4.0)
[2025-06-13 15:08] LABS: Reflex LDLD? No
[2025-06-13 15:13] LABS: Free T4 (Free Thyroxine) 1.42 ng/dL (0.71-1.85)
[2025-06-14 03:36] LABS: Syphilis Screen Nonreactive (Nonreactive)
[2025-06-14 03:43] LABS: HBsAGNum1 0.27 S/CO (0.00-0.99); HIV Num 1 0.10 S/CO (0.00-0.99); Hepatitis B Surface Antigen Negative (Negative); ~HepC Num1 13.59 S/CO (0.00-0.79); ~Hepatitis C Antibody Reactive (Nonreactive)
[2025-06-16 01:03] LABS: HCV Log PCR <1.18 NOT DETECTED Log IU/mL (NOT DETECTED); HepC Viral Load <15 NOT DETECTED IU/mL (NOT DETECTED)
== END 2025-06-13 10:47 | disposition home or self-care (01) ==
LOC: HO.HHCL 10:46
PROVIDERS: PCP Family Medicine; Visit Provider Family Medicine
DX: Z11.4 Encounter for screening for human immunodeficiency virus [HIV] (principal); Z11.3 Encounter for screening for infections with a predominantly sexual mode of transmission; Z11.59 Encounter for screening for other viral diseases; Z13.1 Encounter for screening for diabetes mellitus; I10 Essential (primary) hypertension; E03.9 Hypothyroidism, unspecified; D64.9 Anemia, unspecified
CPT/HCPCS: 36415; 80053; 80061; 82607; 82728; 82746; 83036; 83540; 84439; 84443; 85025; 85045; 86780; 86803; 87340; 87389; 87491; 87522; 87591

== ENCOUNTER 2025-11-01 11:13 | Outpatient (AMB) | payer MEDICAID, SELFPAY ==
[2025-11-01 11:18] VITALS: BP 107/64; PULSE 83; BMI 27.3
--- NOTE | 2025-11-01 11:18 | A.OFFVIS_ITS ---
Vital Signs 11/01/25 11:18 Height 5 ft 6 in Weight 168 lb 13.985 oz BMI 27.3 BP 107/64 Blood Pressure Location Rt brachial Position Sitting Pulse 83 Intake Visit Reasons: Colonoscopy screening Intake Note: New patient in office today for colonoscopy screening. CC: Patient reports constipation, abdominal bloating, a lot of gas, and occasional nausea. 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 He is referred by [facility]. PMX COPD/asthma Cardiomyopathy with only mildly reduced ejection fraction History of pulmonary embolism Hepatitis-C status post Harvoni treatment with SVR Hypothyroid Eczema PVD Opioid dependence -ON SUBOXONE Depression/OCD/bipolar disorder * SURGICAL HISTORY Appendectomy Aorta repair Coronary stent ORIF tibia fracture left Umbilical hernia repair * ALLERGIES Abilify Risperdal [place] extract * [employer] LABS: Laboratory Tests 06/13/25 10:55 WBC 5.8 Hgb 14.0 Hct 39.7 L Plt Count 175 Estimated GFR > 60 Total Bilirubin 0.6 AST 28 ALT 20 Alkaline Phosphatase 46 TSH 0.02 L Free T4 1.42 TODAY'S VISIT Prior scopes: No Bowel or upper GI problems: He controls CIC with senna, miralax and colace and non upper GI problems Cardiac or respiratory problems: He has asthma well controlled as is his cardiomyopathy Problems with anesthesia or sedation: No Infectious disease problems: Hep C s/p SVR/Harvoni Family history of colon cancer or polyps: No [facility] Medical History Rib pain Coarctation of aorta Murmur, cardiac Aortic valve disease Cardiomyopathy PVD (peripheral vascular disease) Hx of fracture of leg Hx of opioid abuse Muscle spasm of back Back pain Hypothyroidism 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 Hx pulmonary embolism Constipation Asthma ADHD Depression Anxiety Bipolar 1 disorder OCD (obsessive compulsive disorder) CAD (coronary artery disease) Hypertension Surgical History Umbilical hernia Hx of left inguinal hernia repair H/O heart artery stent Hx of appendectomy History of aortic coarctation repair Family History Maternal Grandmother History of breast cancer Maternal Grandfather History of colon cancer Social History Household Members: Spouse and Family Household Members Other:: temporarily with sister Housing: House Do you presently have visiting nurse or other home services: No Alcohol intake: unknown Patient Tobacco Use Status: Former Tobacco user Tobacco use type: Cigarette Second Hand Smoke Exposure: No Review of Systems Const Denies fatigue, Denies fever(s), Denies night sweats, Denies poor appetite and Denies weight loss ENT Reports Normal hearing present, Denies dysphagia, Denies odynophagia, Denies throat swelling and Denies tongue swelling Card Reports no additional complaints Resp Reports no additional complaints GI Details: Denies abdominal pain, Denies melena, Denies bloating, Denies hematochezia, Reports constipation, Denies GI cramping, Denies dysphagia, Denies excessive flatus, Denies early satiety, Denies heartburn, Denies diarrhea, Denies nausea, Denies odynophagia, Denies vomiting and Denies hematemesis Musc Details: Rib pain right side with movement Skin/Breast Denies pruritus, Denies lesions, Denies rash and Denies jaundice Neuro Reports Normal hearing present and Denies Abnormal speech present Endo Denies fatigue Aller/Immun Denies throat swelling and Denies tongue swelling Physical Exam Vital Signs: Last Vital Signs Pulse 83 11/01/25 11:18 BP 107/64 11/01/25 11:18 BMI result Body Mass Index 27.3 Const General: cooperative, no acute distress, well developed and well groomed Nutritional Appearance: average body habitus and well nourished Orientation/consciousness: oriented to person, oriented to place and oriented to time Limitations: No language barrier HEENT Head: Yes normocephalic and Yes atraumatic Eyes General: appearance normal, both eyes and all related structures Pupils: Equal, round and reactive pupils present Neck Neck: Yes normal visual inspection and Yes no lymphadenopathy Thyroid: Thyroid normal Resp Effort & Inspection: normal respiratory effort and able to speak in complete sentences Auscultation: clear to auscultation bilaterally Cardio Rate: regular rate Rhythm: regular rhythm Heart sounds: Normal, physiologic split S2 sound present Peripheral pulses: radial pulses present and posterior tibial pulses present GI Inspection: No distended and No Abdominal panniculus present Palpation (GI): Soft to palpation, nontender, no guarding, not rigid and No hepatosplenomegaly present Percussion: Yes normal to percussion Auscultation: normal bowel sounds Rectal Exam - Male: Yes deferred Skin General skin exam: no rashes or lesions noted, turgor normal, skin not dry, no jaundice, No spider nevi and no striae Rashes: no rashes Nails: normal Neuro General: oriented to person, oriented to place and oriented to time Cranial nerves: Yes Equal, round and reactive pupils present and Yes Normal hearing present Speech: No Abnormal speech present Extrem General: Yes normal to inspection, No clubbing, No cyanosis and No edema Psych Appearance: grossly normal and well kempt Mental Status: mental status grossly normal Speech and movement: Normal speech and movement present Affect: normal affect Attitude: cooperative Thought process: Normal thought process present and not confabulating Thought content: Normal thought content present Insight: Good insight present (Psych) Judgement: Good judgement present (Psych) Assessment & Plan Assessment & Plan (1) Pre-op examination: Code(s): Z01.818 - Encounter for other preprocedural examination Category: Medical (2) Opioid dependence on agonist therapy: Comment: ON SUBOXONE Code(s): F11.20 - Opioid dependence, uncomplicated Category: Medical Plan Prior scopes: No Bowel or upper GI problems: He controls CIC with senna, miralax and colace and non upper GI problems Cardiac or respiratory problems: He has asthma well controlled as is his cardiomyopathy Problems with anesthesia or sedation: No Infectious disease problems: Hep C s/p SVR/Harvoni Family history of colon cancer or polyps: No Orders: Referrals GI Procedure Notification Z01.818 - Encounter for other preprocedural examination Medications: New peg 3350-electrolytes 236-22.74-6.74 -5.86 gram (Golytely) until fecal effluent is clear; do not exceed a total volume of 2,000 mL 240 mL PO Q10M 4,000 mL 0RF 1 day Z12.11 - Encounter for screening for malignant neoplasm of colon bisacodyl (Dulcolax (bisacodyl)) 10 mg (2 x 5 mg) PO BEDTIME 8 tabs 0RF 2 days Coding Level of Care Code New Pt Level 3 (21543) Diagnoses Pre-op examination Z01.818 Opioid dependence on agonist therapy F11.20
--- OUTSIDE RECORDS SUMMARY | 2025-11-01 14:55 | XMS_ITS | Encounter Summary ---
Author Organization [employer] Address [address] [place] [address] Care Team Providers Care Film Developer Name Role Phone Elayne Alfredo MD Primary Care Provider [phone] Encounter Details Date Type Department Care Team ([facility] st Contact Info) Description 03/07/[address] [facility] [address] [place], [place] [phone] Elayne Alfredo MD [address] [place], [place] [phone] Social History Tobacco Use Types Packs/Day Years Used Date Smoking Tobacco: Former Cigarettes Passive Smoke Exposure: Past Smokeless Tobacco: Never Depression Answer Date Recorded Patient Health Questionnaire-9 Score 2 06/04/2023 Housing Stability Answer Date Recorded What is your housing situation today? I do not have housing (Staying with others, in a hotel, in a care home, living outside on the street, on a [...] encounter Miscellaneous Notes * Telephone Encounter - Umesharnulfo Oates - 03/07/2024 9:56 AM EDT Tc from pt requested to r/s today's appt with pcp but theres nothing available, advised pt to call back March 16 for May. documented in this encounter Plan of Treatment Upcoming Encounters Date Type Department Care Team (Late st Contact Info) Description 11/21/2025 1:15 PM EST Office Visit [facility] [address] [place] [phone] Elayne Alfredo MD [address] [place] [phone] 12/26/2025 1:00 PM EST Office Visit [facility] [address] [place] [phone] Edgar Tejada MD [address] [place] [phone] documented as of this encounter Visit Diagnoses Not on filedocumented in this encounter Additional Health Concerns Assessment Noted Time PHQ-9 Depression Total Score: 2 06/04/20 23 11:01 AM EDT documented as of this encounter Care Teams Film Developer Relationship Specialty Start Date End Date Elayne Alfredo MD [address] [place] [phone] PCP - General Family Medicine 11/16/18 documented as of this encounter
--- OUTSIDE RECORDS SUMMARY | 2025-11-01 14:55 | XMS_ITS | Encounter Summary ---
Author Organization [employer] Address [address] [facility] 7[address] [place] [address] Care Team Providers Care Enterprise Application Analyst Name Role Phone Elayne Alfredo MD Primary Care Provider [phone] Reason for Visit * Reason Comments Med Refill Encounter Details Date Type Department Care Team ([facility] st Contact Info) Description 03/16/[address] [facility] [address] [place], [place] [phone] Edgar Tejada MD [address] [place], [place] [phone] Uncomplicated opioid dependence (CMS/HCC) Social History Tobacco Use Types Packs/Day Years Used Date Smoking Tobacco: Former Cigarettes Passive Smoke Exposure: Past Smokeless Tobacco: Never Depression Answer Date Recorded Patient Health Questionnaire-9 Score 2 06/04/2023 Housing Stability Answer Date Recorded What is your housing situation today? I do not have housing (Staying with others, in a hotel, in a jail, living outside on the street, on a [...] AM EDT documented as of this encounter Plan of Treatment Upcoming Encounters Date Type Department Care Team (Late st Contact Info) Description 11/21/2025 1:15 PM EST Office Visit [facility]INE [address] [place] [phone] Elayne Alfredo MD [address] [place] [phone] 12/26/2025 1:00 PM EST Office Visit [facility] [address] [place] [phone] Edgar Tejada MD [address] [place] [address] [phone] documented as of this encounter Visit Diagnoses Diagnosis Uncomplicated opioid dependence (CMS/HCC) (HCC) documented in this encounter Additional Health Concerns Assessment Noted Time PHQ-9 Depression Total Score: 2 06/04/20 23 11:01 AM EDT documented as of this encounter Care Teams Enterprise Application Analyst Relationship Specialty Start Date End Date Elayne Alfredo MD [address] [place] [phone] PCP - General Family Medicine 11/16/18 documented as of this encounter
--- OUTSIDE RECORDS SUMMARY | 2025-11-01 14:56 | XMS_ITS | Encounter Summary ---
Author Organization [employer] Address [address] [facility] [facility] [address] [place] [address] Care Team Providers Care Tunnel Heading Inspector Name Role Phone Elayne Alfredo MD Primary Care Provider [phone] Reason for Visit * Reason Comments Med Refill Encounter Details Date Type Department Care Team ([facility] st Contact Info) Description 01/19/2024 Refill [facility] [address] [place], [place] [phone] Edgar Tejada MD [address] [place], [place] [phone] Uncomplicated opioid dependence (CMS/HCC) Social History Tobacco Use Types Packs/Day Years Used Date Smoking Tobacco: Former Cigarettes Passive Smoke Exposure: Past Smokeless Tobacco: Never Depression Answer Date Recorded Patient Health Questionnaire-9 Score 2 06/04/2023 Housing Stability Answer Date Recorded What is your housing situation today? I have zeynep oliver 09/04/[address] you li ve. Do you have problems with any of the following? None of the above 09/04/2023 Food Insecurity Answer Date Recorded Within the past 12 months, y ou worried that your food would run out before you got money to buy more: Never True 09/04/2023 Within the past 12 months,th e food you bought just didn't last and you didn't have enough money to get more: Never True Transportation Answer Date Recorded In the past 12 months, has l ack of transportation kept you from medical appts, meetings, work or from getting things needed for daily living? No 09/04/2023 Utilities Answer Date Recorded In the past [...] Description 11/21/2025 1:15 PM EST Office Visit [facility]INE [address] [place] [phone] Elayne Alfredo MD [address] [place] [address] [phone] 12/26/2025 1:00 PM EST Office Visit [facility] [address] [place] [address] [phone] Edgar Tejada MD [address] [place] [address] [phone] documented as of this encounter Visit Diagnoses Diagnosis Uncomplicated opioid dependence (CMS/HCC) (HCC) documented in this encounter Additional Health Concerns Assessment Noted Time PHQ-9 Depression Total Score: 2 06/04/20 23 11:01 AM EDT documented as of this encounter Care Teams Tunnel Heading Inspector Relationship Specialty Start Date End Date Elayne Alfredo MD [address] [place] [phone] PCP - General Family Medicine 11/16/18 documented as of this encounter
--- OUTSIDE RECORDS SUMMARY | 2025-11-01 14:56 | XMS_ITS | Encounter Summary ---
Author Organization [employer] Address [address] [place] [address] [address] [place] [address] Care Team Providers Care Electrical Assemblies Supervisor Name Role Phone Elayne Alfredo MD Primary Care Provider [phone] Reason for Visit * Reason Comments Med Refill Encounter Details Date Type Department Care Team (Late st Contact Info) Description 08/04/[address] [facility] [address] [place] [address] [phone] Gui Ramirez MD [address] [place] [address] [phone] Uncomplicated opioid dependence (CMS/HCC) Social History Tobacco Use Types Packs/Day Years Used Date Smoking Tobacco: Former Cigarettes Passive Smoke Exposure: Past Smokeless Tobacco: Never Depression Answer Date Recorded Patient Health Questionnaire-9 Score 2 06/04/2023 Depression Answer Date Recorded Patient Health Questionnaire-2 [...] Description 11/21/2025 1:15 PM EST Office Visit [facility] [address] [place] [address] [phone] Elayne Alfredo MD [address] [place] [address] [phone] 12/26/2025 1:00 PM EST Office Visit [facility] [address] [place] [address], [place] [address] Edgar Tejada MD [address] [place], [place] [phone] documented as of this encounter Visit Diagnoses Diagnosis Uncomplicated opioid dependence (CMS/HCC) (HCC) documented in this encounter Additional Health Concerns Assessment Noted Time PHQ-9 Depression Total Score: 2 06/04/20 23 11:01 AM EDT documented as of this encounter Care Teams Electrical Assemblies Supervisor Relationship Specialty Start Date End Date Elayne Alfredo MD [address] [place] [phone] PCP - General Family Medicine 11/16/18 documented as of this encounter
--- OUTSIDE RECORDS SUMMARY | 2025-11-01 14:56 | XMS_ITS | Encounter Summary ---
Author Organization [employer] Address [address] [place] [address] Care Team Providers Care Charge Auditor Name Role Phone Elayne Alfredo MD Primary Care Provider [phone] Encounter Details Date Type Department Care Team ([facility] st Contact Info) Description 05/22/2025 Orders Only [facility] [address], [place] [phone] Elayne Alfredo MD [address] [place], [place] [phone] Acquired hypothyroidism (Primary Dx); Essential hypertension; Heart failure with mildly reduced ejection fraction (HFmrEF) (CMS/HCC); History of hepatitis C; Anemia, unspecified type; Routine screening for STI (sexually transmitted infection); Screening for diabetes mellitus Social History Tobacco Use Types Packs/Day Years Used Date Smoking Tobacco: Former Cigarettes Passive Smoke Exposure: Past Smokeless Tobacco: Never Alcohol Answer Date Recorded Frequency of Alcohol Consumption Not on file 04/25/2024 Average Number of Drinks Not on file 024 Frequency of Binge Drinking Not on file 04/16 Score 0 04/25/2024 Depression Answer Date Recorded Patient Health Questionnaire-9 Score 2 06/04/2023 Housing Stability Answer Date Recorded What is your housing situation today? I do not have housing (Staying with others, in a hotel, in a mcfp, living outside on the street, on a [...] the past 12 months, has t he [employer], gas, oil or water company threatened to [...] Description 11/21/2025 1:15 PM EST Office Visit [facility] [address] [place] [phone] Elayne Alfredo MD [address] [place] [phone] 12/26/2025 1:00 PM EST Office Visit [facility] [address] [place] [phone] Edgar Tejada MD [address] [place] [phone] Scheduled Orders Name Type Priority Associated Diagnoses Orde r Schedule Chlamydia/N. Gonorrhoeae RNA, TMA, Urogenitial Microbiology Routine Routine screening for STI (sexually transmitted infection) Expected: 05/22/2025 (Approximate), Expires: 05/22/2026 Albumin, Random Urine W/Creatinine Lab Routine Essential hypertension Expected: 05/22/2025 (Approximate), Expires: 05/22/2026 documented as of this encounter Procedures Procedure Name Priority Date/Time Associated Diagnosis Comments SYPHILIS SCREEN Routine 06/13/2025 10:55 AM EDT Routine screening for STI (sexually transmitted infection) VITAMIN B12/FOLATE, SERUM PANEL Routine 06/13/2025 10:55 AM EDT Anemia, unspecified type TSH W/REFLEX TO FT4 Routine 06/13/2025 1 0:55 AM EDT Acquired hypothyroidism LIPID PANEL WITH REFLEX TO DIRECT LDL Routine 06/13/2025 10:55 AM EDT Essential hypertension CBC WITH AUTO DIFFERENTIAL Routine 06/13/2025 10:55 AM EDT Anemia, unspecified type HEPATITIS C AB W/REFL TO HCV RNA, QN, PCR Routine 06/13/2025 10:55 AM EDT Routine screening for STI (sexually transmitted infection) IRON AND TOTAL IRON BINDING CAPACITY Routine 06/13/2025 10:55 AM EDT Anemia, unspecified type HEPATITIS B SURFACE ANTIGEN, EIA Routine 06/13/2025 10:55 AM EDT Routine screening for STI (sexually transmitted infection) HIV 1/2 ANTIGEN/ANTIBODY, FOURTH GENERATION W/RFL Routine 06/13/2025 10:55 AM EDT Routine screening for STI (sexually transmitted infection) RETICULOCYTE COUNT Routine 06/13/2025 10 :55 AM EDT Anemia, unspecified type HEMOGLOBIN A1C Routine 06/13/2025 10:55 AM EDT Screening for diabetes mellitus FERRITIN Routine 06/13/2025 10:55 AM EDT Anemia, unspecified type COMPREHENSIVE METABOLIC PANEL Routine 06/13/2025 10:55 AM EDT Essential hypertension documented in this encounter Results * (ABNORMAL) Reticulocyte Count (06/13/2025 10:55 AM EDT) Reticulocytes Absolute 0.125(H) 0.026 - 0.095 X10*6/uL [facility] Immature Retic Fraction 13.6(H) 2.3 - 13.4 % [facility] Retic HGB Equivalent 33.3 30.0 - 35.0 pg [facility] Reticulocyte Percent 2.7(H) 0.5 - 1.8 % [facility] Blood Venous blood specimen / Unknown 06/13/2025 10:55 AM EDT 06/13/2025 1:01 PM EDT Elayne Alfredo MD LAB BLOOD ORDERABLES Final Resul t Performing Organization Address [facility] Co de Phone Number [facility] [address] [place] [phone] * Vitamin B12 (Cobalamin) and Folate Panel, Serum (06/13/2025 10:55 AM EDT) [facility] Vitamin B12 411 200 - 900 pg/mL [facility] Comment:NORMAL 200-900 PG/ML INDETERMINATE 160-199 PG/ML DEFICIENT < 160 PG/ML Folate 10.1 > or = 4.0 ng/mL [facility] Comment:Reference Values:> o r = 4.0 ng/mL< 4.0 ng/mL suggests folate deficiency Methotrexate, aminopterin and folinic acid(leucovorin) are chemotherapeutic agents whose molecularstructures are similar to folate; therefore, the Architectfolate assay cannot be used for patients using these drugs. Blood 06/13/2025 10:5 5 AM EDT 06/13/2025 1:22 PM EDT Elayne Alfredo MD LAB BLOOD ORDERABLES Final Resul t Performing Organization Address [facility] Co de Phone Number [facility] [address] [place] [address] [phone] * Iron And Total Iron Binding Capacity (06/13/2025 10:55 AM EDT) [facility] Iron 119 45 - 160 mcg/dL [facility] Total Iron Binding Capacity 272 228 - 428 mcg/dL [facility] Percent Iron Saturation 44 15 - 50 % [facility] Unsaturated Iron Binding 153 ug/dL [facility] Blood Venous blood specimen / Unknown 06/13/2025 10:55 AM EDT 06/13/2025 1:22 PM EDT Elayne Alfredo MD LAB BLOOD ORDERABLES Final Resul t Performing Organization Address [facility] de Phone Number [facility] [address] [place] [address] [phone] * (ABNORMAL) Ferritin (06/13/2025 10:55 AM EDT) Pathologist [facility] Ferritin 485(H) 20 - 250 ng/mL [facility] Blood Venous blood specimen / Unknown 06/13/2025 10:55 AM EDT 06/13/2025 1:22 PM EDT Elayne Alfredo MD LAB BLOOD ORDERABLES Final Resul t Performing Organization Address [facility] de Phone Number [facility] [address] [place] [address] [phone] * (ABNORMAL) CBC auto differential (06/13/2025 10:55 AM EDT) Pathologist [facility] White Blood Count 5.8 4.8 - 10.8 X10*3/uL [facility] Red Blood Count 4.67 4.60 - 5.80 X10*6/uL [facility] Hemoglobin 14.0 14.0 - 18.0 g/dl [facility] Hematocrit 39.7(L) 42.0 - 52.0 % [facility] Mean Corpuscular Volume 85.0 80.0 - 98.0 fL [facility] Mean Corpuscular Hemoglobin 30.0 27.0 - 33.0 pg [facility] Mean Corpuscular HGB Conc 35.3 31.0 - 36.0 g/dl [facility] Red Cell Distribution Width 13.0 11.0 - 16.0 % [facility] Platelet Count 175 160 - 400 X10*3/uL [facility] Mean Platelet Volume 10.8 9.4 - 12.4 fL [facility] Neutrophils Percent Auto 65.6 45 - 73 % [facility] Imm Gran Pct Auto 0.3 0.0 - 0.4 % [facility] Lymphocytes Percent Auto 25.3 20 - 40 % [facility] Monocytes Percent Auto 7.2 2 - 11 % [facility] Eosinophils Percent Auto 0.9 0 - 4 % [facility] Basophils Percent Auto 0.7 0 - 2 % [facility] NRBC Pct Auto 0.0 0.0 - 0.2 /100WBC [facility] Neutrophils Absolute Auto 3.8 2.0 - 8.3 x10*3/uL [facility] Imm Gran Abs Auto 0.02 0.00 - 0.03 X10*3/uL [facility] Lymphocytes Absolute Auto 1.5 1.2 - 4.9 X10*3/uL [facility] Monocytes Absolute Auto 0.4 0.1 - 1.2 X10*3/uL [facility] Eosinophils Absolute Auto 0.1 0.0 - 0.4 X10*3/uL [facility] Basophils Absolute Auto 0.0 0.0 - 0.2 X10*3/uL [facility] NRBC Abs Auto 0.000 0.0 - 0.012 X10*3/uL [facility] Blood Venous blood specimen / Unknown 06/13/2025 10:55 AM EDT 06/13/2025 1:01 PM EDT us Elayne Alfredo MD LAB BLOOD ORDERABLES Final Resul t [facility] [address] [place] [phone] * (ABNORMAL) Lipid Panel with Reflex to Direct LDL (06/13/2025 10:55 AM EDT) Triglycerides 200(H) <150 mg/dL [facility] Comment:Desirable Triglyceri de: less than 150 mg/dLBorderline High Triglyceride 150-199 mg/dLHigh Triglyceride: 200-499 mg/dLVery High Triglyceride: greater than or equal to 5OO mg/dL Cholesterol 169 <200 mg/dL [facility] Comment:Desirable Cholestero l: less than 200 mg/dLBorderline High Cholesterol: 200-239 mg/dLHigh Cholesterol: greater than 239 mg/dL LDL Cholesterol Calculated 78 <100 mg/dL [facility] Comment:Desirable LDL: less than 100 mg/dLNear Optimal/Above Optimal LDL: 110- 129 mg/dLBorderline High LDL: 130-159 mg/dLHigh LDL: 160-189 mg/dLVery High LDL: greater than or equal to 190 mg/dL HDL Cholesterol 51 >40 mg/dL [facility] Comment:Desirable HDL: great er than 40 mg/dL Note: This HDL assay may give artificially low results in patients with liver disease. Blood 06/13/2025 10:5 5 AM EDT 06/13/2025 1:22 PM EDT us Elayne Alfredo MD LAB BLOOD ORDERABLES Final Resul t [facility] [address] [place] [address] [phone] * (ABNORMAL) Comprehensive Metabolic Panel (06/13/2025 10:55 AM EDT) Sodium 141 135 - 145 mmol/L [facility] Potassium 3.7 3.3 - 5.1 mmol/L [facility] Chloride 106 96 - 108 mmol/L [facility] Carbon Dioxide 26 22 - 29 mmol/L [facility] Anion Gap 13 12 - 20 [facility] Urea Nitrogen (BUN) 19(H) 9 - 16 mg/dL [facility] Creatinine, Serum 0.94 0.5 - 1.4 mg/dL [facility] Estimated Glomerular Filt Rate >60 [facility] Comment:Chronic Kidney Disea se: Estimated GFR < 60 mL/min/[id number] Kidney Disease: Estimated GFR < 15 mL/min/1.73m2 Glucose 105 60 - 115 mg/dL [facility] Calcium 9.5 8.4 - 10.2 mg/dL [facility] Bilirubin, Total 0.6 0.0 - 1.0 mg/dL [facility] Aspartate Amino Transferase 28 5 - 37 U/L [facility] Alanine Aminotransferase 20 0 - 40 U/L [facility] Total Protein 7.6 6.5 - 8.0 g/dL [facility] Albumin Level 4.7 3.5 - 5.0 g/dL [facility] Alkaline Phosphatase 46 39 - 117 U/L [facility] Blood Venous blood specimen / Unknown 06/13/2025 10:55 AM EDT 06/13/2025 1:22 PM EDT us Elayne Alfredo MD LAB BLOOD ORDERABLES Final Resul t [facility] [address] [place] [address] [phone] * Hemoglobin A1c (06/13/2025 10:55 AM EDT) Hemoglobin A1c 5.1 <6.0 % [facility] Comment:Hemoglobin A1C Refer ence Range Adults: 4.8 - 6.0 % Non diabetic: < 6.0 % Goal: < 7.0 %Additional Action Suggested: > 8.0 %Note: Hemoglobin A1c results are invalid for patients with abnormal amounts of HbF. Blood transfusions may impact the HbA1c concentration in the patient sample. Estimated Average Glucose 100 mg/dL [facility] Comment:eAG = Estimated ave rage glucose which is %A1C expressed asaverage glucose, using the formula of the [id number] Glucose study (ADAG), Diabetes Care, Vol.31,#8,2007 Blood Venous blood specimen / Unknown 06/13/2025 10:55 AM EDT 06/13/2025 1:01 PM EDT Elayne Alfredo MD LAB BLOOD ORDERABLES Final Resul t Performing Organization Address [facility] de Phone Number [facility] [address] [place] [address] [phone] * (ABNORMAL) TSH with Reflex to Free T4 (06/13/2025 10:55 AM EDT) TSH reflex Free T4 0.02(L) 0.32 - 4.0 uIU/mL [facility] Blood 06/13/2025 10:5 5 AM EDT 06/13/2025 1:22 PM EDT Elayne Alfredo MD LAB BLOOD ORDERABLES Final Resul t Performing Organization Address [facility] de Phone Number [facility] [address] [place] [address] [phone] * Hepatitis B surface antigen, EIA (06/13/2025 10:55 AM EDT) Pathologist [facility] Hepatitis B Surface Ag Negative Negative [facility] Venous blood specimen / Unknown 06/13/2025 10:55 AM EDT 06/13/2025 1:22 PM EDT Elayne Alfredo MD LAB BLOOD ORDERABLES Final Resul t Performing Organization Address [facility] Co de Phone Number [facility] [address] [place] [address] [phone] * HIV-1/2 Antigen and Antibodies, Fourth Generation, with Reflexes (06/13/2025 10:55 AM EDT) HIV AB/AG Nonreactive Nonreactive [facility] Comment:HIV-1 p24 Ag and/or HIV-1/HIV-2 Ab not detected.A test result that is nonreactive does not exclude thepossibility of exposure to or infection with HIV-1 and/orHIV-2. Nonreactive results in this assay for individualswith prior exposure to HIV-1 and/or HIV-2 may be due toantigen and antibody levels that are below the limit ofdetection of this assay.The Gradient Xnity HIV Ag/Ab Combo assay result andsupplemental assay results should be interpreted inconjunction with the patient's clinical presentation,history and other laboratory results. If the results areinconsistent with clinical evidence, additional testing issuggested to confirm the result. Venous blood specimen / Unknown 06/13/2025 10:55 AM EDT 06/13/2025 1:22 PM EDT Elayne Alfredo MD LAB BLOOD ORDERABLES Final Resul t Performing Organization Address [facility] Co de Phone Number [facility] [address] [place] [address] [phone] * (ABNORMAL) Hepatitis C Antibody with Reflex to HCV, RNA, Quantitative, Real- Time PCR (06/13/2025 10:55 AM EDT) Hepatitis C Antibody Reactive( A) Nonreactive [facility] Comment:Presumptive evidence of antibodies to HCV. Venous blood specimen / Unknown 06/13/2025 10:55 AM EDT 06/13/2025 1:22 PM EDT Elayne Alfredo MD LAB BLOOD ORDERABLES Final Resul t Performing Organization Address City/[facility] Co de Phone Number [facility] [address] [place] [address] [phone] * Syphilis Screen (06/13/2025 10:55 AM EDT) Syphilis Screen Nonreactive Nonreactive [facility] 06/13/2025 10:5 5 AM EDT 06/13/2025 1:09 PM EDT Elayne Alfredo MD LAB BLOOD ORDERABLES Final Resul t [facility] [address] [place] [phone] documented in this encounter Visit Diagnoses Diagnosis Acquired hypothyroidism- Primary Unspecified hypothyroidism Essential hypertension Unspecified essential hypertension Heart failure with mildly reduced ejection fraction (HFmrEF) (HCC) History of hepatitis C Personal history of other infectious and parasitic disease Anemia, unspecified type Routine screening for STI (sexually transmitted infection) Screening examination for venereal disease Screening for diabetes mellitus documented in this encounter Additional Health Concerns Assessment Noted Time PHQ-9 Depression Total Score: 2 06/04/20 23 11:01 AM EDT documented as of this encounter Care Teams Charge Auditor Relationship Specialty Start Date End Date Elayne Alfredo MD [address] [place] [phone] PCP - General Family Medicine 11/16/18 documented as of this encounter
--- OUTSIDE RECORDS SUMMARY | 2025-11-01 14:56 | XMS_ITS | Clinical Summary ---
Author Organization [employer] Address [address] [place] [address] Care Team Providers Care Bun Panner Name Role Phone Elayne Alfredo MD Primary Care Provider [phone] Allergies Active Allergy Reactions Criticality Noted Date Comments Aripiprazole Shortness of breath High 11/20/2010 Risperidone Angioedema,Other 06/28/2010 tongue swelling Cameron Extract Unknown 11/20/2010 Medications Entresto 24-26 MG tablet Take 1 tablet by mouth 2 times daily. 022 Active clonazePAM (KlonoPIN) 0.5 MG tabletIndication s:Generalized anxiety disorder with panic attacks TAKE 1 TABLET BY MOUTH TWICE DAILY 56 tablet 023 Active Acetaminophen Extra Strength 500 MG tablet 1-2 tab po q8h prn fever/pain/head ache 90 tablet 024 Active Spiriva HandiHaler 18 MCG inhalation capsuleIndicatio ns:Chronic obstructive pulmonary disease, unspecified COPD type ([facility]) ([facility]) USE 1 CAPSULE FOR INHALATION ONCE A DAY DO NOT SWALLOW CAPSULE 30 capsule 11 024 Active fluticasone (Flonase) 50 MCG/ACT nasal spray SPRAY 1 SPRAY INTO EACH NOSTRIL IN THE MORNING 48 mL 024 Active albuterol 108 (90 Base) MCG/ACT inhalerIndicatio ns:COPD with exacerbation (CMS/HCC) ([facility]) Inhale 2 puffs every 6 (six) hours if needed for wheezing. 18 g 11 024 Active albuterol (2.5 MG/3ML) 0.083% nebulizer solutionIndicati ons:COPD with exacerbation (CMS/HCC) ([facility]) Take 3 mL (2.5 mg) by nebulization every 6 (six) hours if needed for wheezing. 75 mL 11 Active naproxen (Naprosyn) 500 MG tabletIndication s:Pain TAKE 1 TABLET BY MOUTH TWICE DAILY WITH FOOD NEEDED FOR PAIN DO NOT EXCEED 2 WEEKS 30 tablet 2 Active levothyroxine (Synthroid) 100 MCG tablet Take 1 tablet (100 mcg) by mouth before breakfast. 90 tablet 3 Active melatonin 5 MG tablet Take 1 or 2 tablets 2-3 hours before your desired bedtime 180 tablet 1 Active Buprenorphine HCl-Naloxone HCl (Suboxone) 8-2 MG SL filmIndications: Uncomplicated opioid dependence (CMS/HCC) (HCC) Place 1 Film under the tongue Once per day. 28 Film 2 11/01/20 25 12:33 PM EST 2025 Active amoxicillin (Amoxil) 500 MG capsule TAKE 4 CAPSULE (S) BY MOUTH ONCE BEFORE DENTAL PROCEDURE 20 capsule 10/02/20 9:55 AM EST Active buprenorphine-na loxone (Suboxone) 2-0.5 MG per sublingual filmIndications: Uncomplicated opioid dependence (CMS/HCC) (HCC) Place 1 Film under the tongue Once per day. 28 Film 2 11/01/20 12:33 PM EST 025 2025 Active senna (Senokot) 8.6 MG tabletIndication s:Opioid dependence, uncomplicated (CMS/HCC) (HCC) Take 2 tablets (17.2 mg) by mouth if needed at bedtime for constipation. May take 2 tablets 2x/day. 90 tablet 3 10/03/20 25 2:47 PM EST Active polyethylene glycol, PEG, 3350 (Miralax) 17 g packet Take 17 g by mouth if needed each day (constipation). 510 each 1 025 Active docusate sodium (Colace) 100 MG capsuleIndicatio ns:Opioid dependence, uncomplicated (CMS/HCC) (HCC) Take 1 capsule (100 mg) by mouth if needed in the morning and at bedtime for constipation. 180 capsule 3 10/03/20 25 2:47 PM EST 025 Active polyethylene glycol, PEG, 3350 (Miralax) 17 g packet Take 17 g by mouth if needed each day (constipation). 510 each 1 024 2024 Discontinued(R eorder (will not trigger notification to Pharmacy)) senna (Senokot) 8.6 MG tabletIndication s:Opioid dependence, uncomplicated (CMS/HCC) (HCC) Take 2 tablets (17.2 mg) by mouth if needed at bedtime for constipation. May take 2 tablets 2x/day. 90 tablet 3 024 2024 Discontinued(R eorder (will not trigger notification to Pharmacy)) docusate sodium (Colace) 100 MG capsuleIndicatio ns:Opioid dependence, uncomplicated (CMS/HCC) (HCC) Take 1 capsule (100 mg) by mouth if needed in the morning and at bedtime for constipation. 180 capsule 3 025 2024 Discontinued(R eorder (will not trigger notification to Pharmacy)) Active Problems Problem Noted Date Diagnosed Date Cardiac risk counseling 11/02/2023 Assessment & Plan (04/25/2024 12:01 PM EDT): - check ASCVD risk - consider starting statin earlier - had episode of mild chest pain - offered EKG, but pt declined Assessment & Plan (11/02/2023 4:29 PM EST): - check ASCVD risk - consider starting statin earlier History of pulmonary embolism 10/27/2023 Assessment & Plan (10/27/2023 5:50 AM EST): - post-operative, repair of coarctation or aorta, 2010 Bilateral thumb pain 06/05/2023 Assessment & Plan (06/05/2023 11:46 AM EDT): - osteoarthritis or deQuervain tenosynovitis - judicious use of APAP - appropriate rest - wrist / thumb splint History of hepatitis C 02/05/2023 Assessment & Plan (06/20/2025 1:59 PM EDT): Genotype 1a Completed Harvoni treatment, Dec - January 2016, by [facility] Hep C team Assessment & Plan (04/25/2024 11:44 AM EDT): Genotype 1a Completed Harvoni treatment, Dec - January 2016, by [facility] C team Assessment & Plan (10/27/2023 5:52 AM EST): Genotype 1a Completed Harvoni treatment, Dec - January 2016, by [facility] C team Assessment & Plan (06/05/2023 9:58 AM EDT): Genotype 1a Completed Harvoni treatment, Dec - January 2016, by [facility] C team Cardiomyopathy 02/05/2023 Heart failure with mildly re duced ejection fraction (HFmrEF) 02/05/2023 Assessment & Plan (08/14/2025 10:52 AM EDT): - surgical repair of coarctation of aorta as , and another surgical repair of residual coarctation and right subclavian stenosis s/p stent in November 2010 -Current medications: ASA 325 mg daily (Hx PE in February 2011 s/p Coumadin, adverse reaction to Plavix); Entresto 24/26 mg bid since Nov 2019; amoxicillin for SBE prophylaxis -Previous medication: lisinopril was discontinued as he was starting Entresto. 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, last seen in April 2025, following every 6-12 mo -Most recent TT echocardiogram on 04/04/2025: Normal LV function with EF 55 to 60%. Grade 1 diastolic dysfunction with impaired relaxation filling pattern. - 03/24/24. Left ventricular systolic funciton is low-normal with EF between 50- 55%, improved. Mild mitral annular calcification. Bicasupid aortic valve. No regurgitation or stenosis. -Stress test in Nov 2019, exercise stress test showed possible infarct, nuclear stress test LVEF 70%, no ischemia -Echocardiogram review: -09/28/19 Transthoracic echo: EF 40-45% -06/12/20 TTE: EF 50-55% -04/25/21 Transesophageal echocardiogram EF 40-45%, distal lateral wall and apex appear hypokinetic -03/24/24 TT echo: Left ventricular systolic funciton is low-normal with EF between 50-55%, improved. Mild mitral annular calcification. Bicasupid aortic valve. No regurgitation or stenosis. -04/04/25 TT echo: Normal LV fxn with EF 55-60%. Grade 1 diastolic dysfunction with impaired relaxation filling pattern. -Last carotid US: Jul 2013 normal -Continue working on risk factor management Assessment & Plan (06/21/2025 9:33 AM EDT): - surgical repair of coarctation of aorta as , and another surgical repair of residual coarctation and right subclavian stenosis s/p stent in November 2010 -Current medications: ASA 325 mg daily (Hx PE in February 2011 s/p Coumadin, adverse reaction to Plavix); Entresto 24/26 mg bid since Nov 2019; amoxicillin for SBE prophylaxis -Previous medication: lisinopril was discontinued as he was starting Entresto. 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, last seen in April 2025, following every 6-12 mo -Most recent TT echocardiogram on 04/04/2025: Normal LV function with EF 55 to 60%. Grade 1 diastolic dysfunction with impaired relaxation filling pattern. - 03/24/24. Left ventricular systolic funciton is low-normal with EF between 50- 55%, improved. Mild mitral annular calcification. Bicasupid aortic valve. No regurgitation or stenosis. -Stress test in Nov 2019, exercise stress test showed possible infarct, nuclear stress test LVEF 70%, no ischemia -Echocardiogram review: -09/28/19 Transthoracic echo: EF 40-45% -06/12/20 TTE: EF 50-55% -04/25/21 Transesophageal echocardiogram EF 40-45%, distal lateral wall and apex appear hypokinetic -03/24/24 TT echo: Left ventricular systolic funciton is low-normal with EF between 50-55%, improved. Mild mitral annular calcification. Bicasupid aortic valve. No regurgitation or stenosis. -04/04/25 TT echo: Normal LV fxn with EF 55-60%. Grade 1 diastolic dysfunction with impaired relaxation filling pattern. -Last carotid US: Jul 2013 normal -Continue working on risk factor management Assessment & Plan (04/25/2024 5:39 AM EDT): - surgical repair of coarctation of aorta as infant, and another surgical repair of residual coarctation and right subclavian stenosis s/p stent in November 2010 -Current medications: ASA 325 mg daily (Hx PE in February 2011 s/p Coumadin, adverse reaction to Plavix); Entresto 24/26 mg bid since Nov 2019; amoxicillin for SBE prophylaxis -Previous medication: lisinopril was discontinued as he was starting Entresto. 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, last seen in April 2024, following every 6 mo -Most recent transthoracic echocardiogram on 03/24/24. Left ventricular systolic funciton is low-normal with EF between 50-55%, improved. Mild mitral annular calcification. Bicasupid aortic valve. No regurgitation or stenosis. -Stress test in Nov 2019, exercise stress test showed possible infarct, nuclear stress test LVEF 70%, no ischemia -Echocardiogram review: -09/28/19 Transthoracic echo: EF 40-45% -06/12/20 TTE: EF 50-55% -04/25/21 Transesophageal echocardiogram EF 40-45%, distal lateral wall and apex appear hypokinetic -Last carotid US: Jul 2013 normal, needs to update -Continue working on risk factor management Assessment & Plan (11/02/2023 4:27 PM EST): - surgical repair of coarctation of aorta as , and another surgical repair of residual coarctation and right subclavian stenosis s/p stent in November 2010 -Current medications: ASA 325 mg daily (Hx PE in February 2011 s/p Coumadin, adverse reaction to Plavix); Entresto 24/26 mg bid since Nov 2019; amoxicillin for SBE prophylaxis -Previous medication: lisinopril was discontinued as he was starting Entresto. 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, last seen in Jun 2023, following every 6 mo -Stress test in Nov 2019, exercise stress test showed possible infarct, nuclear stress test LVEF 70%, no ischemia -Echocardiogram: -09/28/19 Transthoracic echo: EF 40-45% -06/12/20 TTE: EF 50-55% -04/25/21 Transesophageal echocardiogram EF 40-45%, distal lateral wall and apex appear hypokinetic -Last carotid US: Jul 2013 normal, needs to update -Last FLP: 07/13/20 TC 169; TG 159; HDL 43; LDL 94 Opioid dependence 12/02/2022 Assessment & Plan (06/20/2025 2:01 PM EDT): - Enrolled in [facility] - Continue current Tx plan per Carmen Tejada at [facility] Assessment & Plan (04/25/2024 11:53 AM EDT): - Enrolled in [facility] - Continue current Tx plan per Carmen Tejada at [facility] Assessment & Plan (10/27/2023 5:54 AM EST): - Enrolled in [facility] - Continue current Tx plan per Carmen Tejada at [facility] Assessment & Plan (06/05/2023 9:53 AM EDT): - Enrolled in [facility] - Continue current Tx plan per Carmen Tejada at [facility] Bicuspid aortic valve 09/27/2018 Peripheral vascular disease 09/27/2018 Assessment & Plan (06/20/2025 1:59 PM EDT): - Hx subclavian artery stenosis s/p stent - continue medical management Assessment & Plan (10/27/2023 5:48 AM EST): - Hx subclavian artery stenosis s/p stent - continue medical management Assessment & Plan (06/05/2023 9:50 AM EDT): - Hx subclavian artery stenosis s/p stent - continue medical management Dyshidrotic eczema 07/07/2016 Mood disorder 12/24/2015 Assessment & Plan (08/14/2025 10:54 AM EDT): Respite and psych admission 2-3 times per year prior to 2019, stable in last few years. Previous [facility] provider: [facility] Previous Dx: ADHD/ADD; chronic depression; OCD; bipolar disorder Current [facility] is [facility], previously [facility] Current medications: clonazepam, melatonin. Previously on Bly, Latuda, Risperdal, Strattera, trazodone, zyprexa; olanzapine Emphasized the importance of adherence with [facility] and medications. His son has autism. He was able to contract his safety today. Assessment & Plan (06/20/2025 2:00 PM EDT): Respite and psych admission 2-3 times per year prior to 2019, stable in last few years. Previous [facility] provider: [facility] Previous Dx: ADHD/ADD; chronic depression; OCD; bipolar disorder Current [facility] is [facility], previously [facility] Current medications: clonazepam, melatonin. Previously on Bly, Latuda, Risperdal, Strattera, trazodone, zyprexa; olanzapine Emphasized the importance of adherence with [facility] and medications. His son has autism. Doing well recently. He was able to contract his safety today. Assessment & Plan (04/25/2024 11:53 AM EDT): Respite and psych admission 2-3 times per year prior to 2019, stable in last few years. Previous [facility] provider: [facility] Previous Dx: ADHD/ADD; chronic depression; OCD; bipolar disorder Current [facility]HS is [facility], previously [facility] Current medications: clonazepam, melatonin. Previously on Bly, Latuda, Risperdal, Strattera, trazodone, zyprexa; olanzapine Emphasized the importance of adherence with BHS and medications. His son has autism. Doing well recently. He was able to contract his safety today. Assessment & Plan (10/27/2023 5:55 AM EST): Respite and psych admission 2-3 times per year prior to 2019, stable in last few years. Previous [facility] provider: [facility] Previous Dx: ADHD/ADD; chronic depression; OCD; bipolar disorder Current [facility] is [facility], previously [facility] Current medications: clonazepam, melatonin. Previously on Bly, Latuda, Risperdal, Strattera, trazodone, zyprexa; olanzapine Emphasized the importance of adherence with BHS and medications. His son has autism. Doing well recently. He was able to contract his safety today. Assessment & Plan (06/05/2023 11:26 AM EDT): Respite and psych admission 2-3 times per year prior to 2019, stable in last few years. Previous [facility] provider: [facility] Previous Dx: ADHD/ADD; chronic depression; OCD Current [facility], previously [facility] Current medications: clonazepam, melatonin. Previously on Bly, Latuda, Risperdal, Strattera, trazodone, zyprexa; olanzapine Emphasized the importance of adherence with BHS and medications. His son has autism. Doing well recently. He was able to contract his safety today. Essential hypertension 10/08/2015 Assessment & Plan (08/14/2025 10:52 AM EDT): -Goal BP < 130/80 per ACC/AHA guideline (Treatment threshold >= 140/90 ) -BP within acceptable range -Continue working on lifestyle modifications -Recommended self-monitoring BP. -Current medication: Entreston 24/26 mg bid since Nov 2019 -Previous medication: lisinopril 5 mg daily discontinued in Nov 2019 Assessment & Plan (06/21/2025 9:34 AM EDT): -Goal BP < 130/80 per ACC/AHA guideline (Treatment threshold >= 140/90 ) -BP within acceptable range -Continue working on lifestyle modifications -Recommended self-monitoring BP. -Current medication: Entreston 24/26 mg bid since Nov 2019 -Previous medication: lisinopril 5 mg daily discontinued in Nov 2019 Assessment & Plan (04/25/2024 11:44 AM EDT): -Goal BP < 140/90 per JNC-8 and < 130/80 per ACC/AHA guideline (Treatment threshold >= 140/90 ) -BP within acceptable range -Continue working on lifestyle modifications -Recommended self-monitoring BP. -Current medication: Entreston 24/26 mg bid since Nov 2019 -Previous medication: lisinopril 5 mg daily discontinued in Nov 2019 -Follow up in 3-6 mo, sooner if any problem arises Assessment & Plan (10/27/2023 5:49 AM EST): -Goal BP < 140/90 per JNC-8 and < 130/80 per ACC/AHA guideline (Treatment threshold >= 140/90 ) -BP within acceptable range -Continue working on lifestyle modifications -Recommended self-monitoring BP. -Current medication: Entreston 24/26 mg bid since Nov 2019 -Previous medication: lisinopril 5 mg daily discontinued in Nov 2019 -Follow up in 3-6 mo, sooner if any problem arises Assessment & Plan (06/05/2023 9:51 AM EDT): -Goal BP < 140/90 per JNC-8 and < 130/80 per ACC/AHA guideline (Treatment threshold >= 140/90 ) -BP within acceptable range -Continue working on lifestyle modifications -Recommended self-monitoring BP. -Current medication: Entreston 24/26 mg bid since Nov 2019 -Previous medication: lisinopril 5 mg daily discontinued in Nov 2019 -Follow up in 3-6 mo, sooner if any problem arises Obsessive-compulsive disorder 03/30/2014 COPD with asthma ([facility]) 11/26/2012 Assessment & Plan (08/14/2025 10:55 AM EDT): -significantly improved since he stopped smoking cigarettes -Last severe exacerbation in Oct 2019 Tx prednisone. - Exacerbation 1-2 times per year, lessened since he quit smoking. - PFT in 2006 showed obstructive airway disease with minimal improvement with bronchodilator. Will consider repeating in near future. -Emphasized the importance of adherence to maintenance medication. -Maintenance: Spiriva 18 mcg daily; montelukast 10 mg daily -Rescue: Albuterol HFA; DuoNeb prn -Treatment Hx: He developed palpitation, anxiety, and shakiness with Advair. Previously on Flovent, but he has not been using. -Continue staying non-smoker. Assessment & Plan (06/20/2025 2:01 PM EDT): -significantly improved since he stopped smoking cigarettes -Last severe exacerbation in Oct 2019 Tx prednisone. - Exacerbation 1-2 times per year, lessened since he quit smoking. - PFT in 2006 showed obstructive airway disease with minimal improvement with bronchodilator. Will consider repeating in near future. -Emphasized the importance of adherence to maintenance medication. -Maintenance: Spiriva 18 mcg daily; montelukast 10 mg daily -Rescue: Albuterol HFA; DuoNeb prn -Treatment Hx: He developed palpitation, anxiety, and shakiness with Advair. Previously on Flovent, but he has not been using. -Continue staying non-smoker. Assessment & Plan (04/25/2024 11:43 AM EDT): -significantly improved since he stopped smoking cigarettes -Last severe exacerbation in Oct 2019 Tx prednisone. - Exacerbation 1-2 times per year, lessened since he quit smoking. - PFT in 2006 showed obstructive airway disease with minimal improvement with bronchodilator. Will consider repeating in near future. -Emphasized the importance of adherence to maintenance medication. -Maintenance: Spiriva 18 mcg daily; montelukast 10 mg daily -Rescue: Albuterol HFA; DuoNeb prn -Treatment Hx: He developed palpitation, anxiety, and shakiness with Advair. Previously on Flovent, but he has not been using. -Continue staying non-smoker. Assessment & Plan (11/02/2023 4:25 PM EST): -significantly improved since he stopped smoking cigarettes -Last severe exacerbation in Oct 2019 Tx prednisone. - Exacerbation 1-2 times per year, lessened since he quit smoking. - PFT in 2006 showed obstructive airway disease with minimal improvement with bronchodilator. Will consider repeating in near future. -Emphasized the importance of adherence to maintenance medication. -Maintenance: Spiriva 18 mcg daily; montelukast 10 mg daily -Rescue: Albuterol HFA; DuoNeb prn -Treatment Hx: He developed palpitation, anxiety, and shakiness with Advair. Previously on Flovent, but he has not been using. -Continue staying non-smoker. Assessment & Plan (06/05/2023 9:49 AM EDT): -significantly improved since he stopped smoking cigarettes -Last severe exacerbation in Oct 2019 Tx prednisone. - Exacerbation 1-2 times per year, lessened since he quit smoking. - PFT in 2006 showed obstructive airway disease with minimal improvement with bronchodilator. Will consider repeating in near future. -Emphasized the importance of adherence to maintenance medication. -Maintenance: Flovent 220 mcg ONE puff bid; Spiriva 18 mcg daily; Singulair 10 mg daily -Rescue: Albuterol HFA; DuoNeb prn -Treatment Hx: He developed palpitation, anxiety, and shakiness with Advair -Continue staying non-smoker. Bipolar disorder 05/13/2012 Depressive disorder 05/13/2012 Hypothyroidism 05/06/2012 Assessment & Plan (08/14/2025 10:53 AM EDT): -Current replacement: 100 mcg daily, recently decreased -Likely congenital, Hx Bly use for Bipolar disorder -Most recent lab: TSH 0.02 on 06/13/2025 (levothyroxine was decreased) -Emphasized the importance of adherence to levothyroxine. Assessment & Plan (06/21/2025 9:37 AM EDT): -Current replacement: 100 mcg daily, recently decreased -Likely congenital, Hx Bly use for Bipolar disorder -Most recent lab: TSH 0.02 on 06/13/2025 (levothyroxine was decreased) -Emphasized the importance of adherence to levothyroxine. Assessment & Plan (04/25/2024 11:59 AM EDT): -Current replacement: 112 mcg daily -Likely congenital, Hx Bly use for Bipolar disorder -Most recent lab: 01/15/21 TSH 3.07 -Emphasized the importance of adherence to levothyroxine. -Encouraged to get lab work done, previously ordered. Assessment & Plan (10/27/2023 5:53 AM EST): -Current replacement: 112 mcg daily -Likely congenital, Hx Bly use for Bipolar disorder -Most recent lab: 01/15/21 TSH 3.07 -Emphasized the importance of adherence to levothyroxine. -Recheck lab due to fluctuating weight. Assessment & Plan (06/05/2023 9:57 AM EDT): -Current replacement: 112 mcg daily -Hx Bly use for Bipolar disorder -Most recent lab: 01/15/21 TSH 3.07 -Emphasized the importance of adherence to levothyroxine. -Recheck lab due to fluctuating weight. Headache 05/06/2012 Assessment & Plan (06/20/2025 2:01 PM EDT): - MRI/MRA normal in 2019 - currently stable Assessment & Plan (06/05/2023 9:44 AM EDT): - MRI/MRA normal in 2019 - currently stable Coarctation of aorta 1974 Assessment & Plan (06/21/2025 9:35 AM EDT): -Congenital. He had a surgical repair as infant, and another surgical repair of residual coarctation and right subclavian stenosis s/p stent in November 2010 -Current medications: ASA 325 mg daily (Hx PE in February 2011 s/p Coumadin, adverse reaction to Plavix); Entresto 24/26 mg bid since Nov 2019; amoxicillin for SBE prophylaxis -Previous medication: lisinopril was discontinued as he was starting Entresto. 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, last seen in April 2025, following every 6-12 mo -Stress test in Nov 2019, exercise stress test showed possible infarct, nuclear stress test LVEF 70%, no ischemia -Echocardiogram: -09/28/19 Transthoracic echo: EF 40-45% -06/12/20 TTE: EF 50-55% -04/25/21 Transesophageal echocardiogram EF 40-45%, distal lateral wall and apex appear hypokinetic -04/04/2025 echo EF 55 to 60% -Last carotid US: Jul 2013 normal, needs to update -Last FLP: 07/13/20 TC 169; TG 159; HDL 43; LDL 94 -IC aneurysm screen - MRI/MRA negative on 08/09/19 Assessment & Plan (04/25/2024 11:44 AM EDT): -Congenital. He had a surgical repair as infant, and another surgical repair of residual coarctation and right subclavian stenosis s/p stent in November 2010 -Current medications: ASA 325 mg daily (Hx PE in February 2011 s/p Coumadin, adverse reaction to Plavix); Entresto 24/26 mg bid since Nov 2019; amoxicillin for SBE prophylaxis -Previous medication: lisinopril was discontinued as he was starting Entresto. 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, last seen in Jun 2023, following every 6 mo -Stress test in Nov 2019, exercise stress test showed possible infarct, nuclear stress test LVEF 70%, no ischemia -Echocardiogram: -09/28/19 Transthoracic echo: EF 40-45% -06/12/20 TTE: EF 50-55% -04/25/21 Transesophageal echocardiogram EF 40-45%, distal lateral wall and apex appear hypokinetic -Last carotid US: Jul 2013 normal, needs to update -Last FLP: 07/13/20 TC 169; TG 159; HDL 43; LDL 94 -IC aneurysm screen - MRI/MRA negative on 08/09/19 Assessment & Plan (10/27/2023 5:51 AM EST): -Congenital. He had a surgical repair as , and another surgical repair of residual coarctation and right subclavian stenosis s/p stent in November 2010 -Current medications: ASA 325 mg daily (Hx PE in February 2011 s/p Coumadin, adverse reaction to Plavix); Entresto 24/26 mg bid since Nov 2019; amoxicillin for SBE prophylaxis -Previous medication: lisinopril was discontinued as he was starting Entresto. 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, last seen in Jun 2023, following every 6 mo -Stress test in Nov 2019, exercise stress test showed possible infarct, nuclear stress test LVEF 70%, no ischemia -Echocardiogram: -09/28/19 Transthoracic echo: EF 40-45% -06/12/20 TTE: EF 50-55% -04/25/21 Transesophageal echocardiogram EF 40-45%, distal lateral wall and apex appear hypokinetic -Last carotid US: Jul 2013 normal, needs to update -Last FLP: 07/13/20 TC 169; TG 159; HDL 43; LDL 94 -IC aneurysm screen - MRI/MRA negative on 08/09/19 Assessment & Plan (06/05/2023 9:45 AM EDT): -Congenital. He had a surgical repair as , and another surgical repair of residual coarctation and right subclavian stenosis s/p stent in November 2010 -Current medications: ASA 325 mg daily (Hx PE in February 2011 s/p Coumadin, adverse reaction to Plavix); Entresto 24/26 mg bid since Nov 2019; amoxicillin for SBE prophylaxis -Previous medication: lisinopril was discontinued as he was starting Entresto. 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, last seen in Dec 2022 -Stress test in Nov 2019, exercise stress test showed possible infarct, nuclear stress test LVEF 70%, no ischemia -Echocardiogram: -09/28/19 Transthoracic echo: EF 40-45% -06/12/20 TTE: EF 50-55% -04/25/21 Transesophageal echocardiogram EF 40-45%, distal lateral wall and apex appear hypokinetic -Last carotid US: Jul 2013 normal, needs to update -Last FLP: 07/13/20 TC 169; TG 159; HDL 43; LDL 94 -IC aneurysm screen - MRI/MRA negative on 08/09/19 Resolved Problems Problem Noted Date Diagnosed Date Resolved Date COVID-19 01/02/2024 04/25/2024 Assessment & Plan (01/02/2024 10:38 AM EST): ' Rx for Molnupiravir x [address] [facility] pharmacy at patient's request. I didn't rx Paxlovid due to significant interaction with clonazepam (increase effect of clonazepam due to sharing metabolic pathways)and mild interaction with Buprenorphine (mild but potentially lethal?). He will re consult prn if he develops SOB, pleuritic CP and/or fever doesn't resolve within 5d. Isolation until 01/05/24 and she/he will be out of work until then. Can be out of isolation, wearing a mask from 01/14/24', if sxs are resolved without other meds for at least 24h. Counseled to let close contacts within the past week, know about dx so they can be tested if needed. Rest (sleep at least 8 hours a night). Wash hands frequently Hydrate with plenty of water. Use saline nose drops Take Acetaminophen or Ibuprofen as Prn fever or discomfort Gargle with salt water and use throat sprays/lozenges prn Use heated, humidified air or take hot showers. If you have a fever, stay home and away from others (self isolation) until fever-free for 72 hours (temperature should be less than 100 F without medication). Disease 12/21/2022 12/22/2022 Chronic hepatitis C (CMS/HCC) 10/08/2015 10/27/2023 Opioid dependence 05/06/2012 10/27/2023 Encounters Date Type Department Care Team Description 10/20/2025 11:00 AM EST Office Visit [facility] [address] [place] [address] Arlene Epperson, OD Dry eyes, bilateral (Primary Dx); Presbyopia 10/20/2025 Travel 10/18/2025 Telephone [facility] [address] [place], [place] [phone] Elayne Alfredo MD 10/03/2025 1:00 PM EST Office Visit [facility] [address] [place] [address] Edgar Tejada MD Opioid dependence, uncomplicated ([facility]/HCC) ([facility]) 10/03/2025 Refill [facility] [address] [place] [phone] Carmen Calderon RN Uncomplicated opioid dependence (CMS/HCC) (HCC) 10/03/2025 Travel 09/27/2025 Refill [facility] [address] [place] [address] Elayne Alfredo MD 09/27/2025 Telephone [facility] [address] [place] [phone] Elayne Alfredo MD Letter for School/Work 09/22/2025 Refill [facility] [address] [place] [address] Carmen Calderon RN Uncomplicated opioid dependence ([facility]/HCC) (HCC) 08/08/2025 10:45 AM EDT Clinical Support [facility] [address] [place] [phone] Carmen Calderon RN Opioid type dependence, continuous ([facility]/HCC) (Primary Dx) 08/08/2025 Refill [facility] [address] [place] [phone] Carmen Calderon RN Uncomplicated opioid dependence ([facility]/HCC) 08/08/2025 Refill [facility] [address] [place] [address] Carmen Calderon RN 08/08/2025 Travel 08/03/2025 11:15 AM EDT Telemedicine [facility] [address] [place] [phone] Elayne Alfredo MD Essential hypertension (Primary Dx); Heart failure with mildly reduced ejection fraction (HFmrEF) ([facility]); Other cardiomyopathy ([facility]); Acquired hypothyroidism; Bipolar affective disorder, remission status unspecified ([facility]); Mood disorder ([facility]); Obsessive-compulsive disorder, unspecified type; COPD with asthma ([facility]) 08/03/2025 Travel from Last 3 Months Immunizations Immunization Administration Dates Next Due Hep A, Adult 06/20/2010,09/17/2007 Hep B, adult 05/09/2006 Influenza injectable quadriv alent IIV4 with preservative 08/01/2019,09/27/2018,12/15/2017,09/20 Influenza injectable quadriv alent preservative free 10/27/2023,08/18/2022 Influenza, IIV3, injectable 09/12/2014,0 07/23/2010,08/22/2009,09/26,08/25/2007,09/21/2006 Influenza, Split (incl. nancy fied surface antigen) 11/21/2013,07/15/2012 Pneumococcal Conjugate PCV 20 06/04/2023 Pneumococcal Polysaccharide PPSV23 01/28/2013, TD (adult), 2 Lf tetanus tox oid, preservative free, adsorbed 08/18/2022,09/17/2007 Tdap 10/16/2011 Family History Medical History Relation Name Comments Glaucoma Mother Relation Name Status Comments Mother Social History Tobacco Use Types Packs/Day Years Used Date Smoking Tobacco: Former Cigarettes Passive Smoke Exposure: Past Smokeless Tobacco: Never Tobacco Cessation:Counseling Given: Not Answered Alcohol Answer Date Recorded How often do you have a drink containing alcohol ? 2 06/19/2025 How many drinks containing a lcohol do you have on a typical day when you are drinking? 0 06/19/2025 Frequency of Binge Drinking Not on file 02/2025 Depression Answer Date Recorded Patient Health Questionnaire-9 Score 14 06/19/2025 Patient Health Questionnaire-9 Score 14 06/19/2025 Last PHQ-9: Questionnaire Data Not on file 0 06/19/2025 Housing Stability Answer Date Recorded What is your housing situation today? I have housing today, but I am worried about losing housing in the future 06/19/[address] you li ve. Do you have problems with any of the following? None of the above 06/19/2025 Food Insecurity Answer Date Recorded Within the past 12 months, y ou worried that your food would run out before you got money to buy more: Never True 06/19/2025 Within the past 12 months,th e food you bought just didn't last and you didn't have enough money to get more: Never True 02/2025 Transportation Answer Date Recorded In the past 12 months, has l ack of transportation kept you from medical appts, meetings, work or from getting things needed for daily living? No 06/19/2025 Utilities Answer Date Recorded In the past 12 months, has t he electric, gas, oil or water company threatened to shut off services in your home? No 06/19/2025 Depression Answer Date Recorded Patient Health Questionnaire-2 Score 6 06/19/2025 Internet Access Answer Date Recorded Internet Access Q1 Yes 06/19/2025 Internet Access Q2 Not on file 06/19/2025 Sex and Gender Information Value Date Recorded Sex Assigned at Male 09/15/2022 10:15 AM EDT Legal Sex Male 10:15 AM EDT Gender Identity Male 09/15/2022 10:15 AM EDT Sexual Orientation Straight 09/15/2022 10 :15 AM EDT Last Filed Vital Signs Vital Sign Reading Time Taken Comments Blood Pressure 110/70 06/19/2025 1:07 PM EDT Pulse 106 06/19/2025 1:07 PM EDT Temperature 36.2 C (97.1 F) 06/19/2025 1:07 PM EDT Respiratory Rate 17 06/19/2025 1:07 PM EDT Oxygen Saturation 98% 06/19/2025 1:07 PM EDT Inhaled Oxygen Concentration - - Weight 73 kg (161 lb) 06/19/2025 1:07 PM EDT Height 167.6 cm (5' 6 ) 06/19/2025 1:07 PM EDT Body Mass Index 25.99 06/19/2025 1:07 PM EDT Plan of Treatment Upcoming Encounters Date Type Department Care Team (Late st Contact Info) Description 11/21/2025 1:15 PM EST Office Visit [facility] [address], [place] [phone] Elayne Alfredo MD [address] [place] [address] 12/26/2025 1:00 PM EST Office Visit [facility] [address], [place] [phone] Edgar Tejada MD [address] [place] [address] Health Maintenance Due Date Last Done Comments CT Colonography 1974 Colonoscopy 1974 Colorectal Cancer Screening 1974 FIT DNA/Cologuard 1974 FIT 1974 FOBT 1974 Sigmoidoscopy 1974 Family Planning (PISQ) 1989 RSV Patients and Patients Aged 60 years or older (1 - Risk 50-74 years 1-dose series) 2024 Zoster Vaccines (1 of 2) 2024 COVID-19 Vaccine ( - season) 2025 11/26/2021, 02/12/2021, 01/15/2021 Influenza Vaccine (#1) 2025 , 08/18/2022, 08/01/2019, Additional history exists Depression Monitoring 12/20/2025 06/19/2025, 025 Alcohol/Substance Use Screening 06/19/2026 06/19/2025 Disability Screening 06/19/2026 06/19/2025 SDOH Screening 06/19/2026 06/19/2025 Tobacco Screening 10/20/2026 10/20/2025 Lipid Panel 06/13/2030 06/13/2025, 06/12/2020 DTaP/Tdap/Td Vaccines (3 - Td or Tdap) 08/18/2032 08/18/2022, 10/16/2011, 09/17/2007 Hepatitis B Vaccines Discontinued 05/09/2006 Hepatitis A Vaccines Completed 06/20/2010, 09/17/20 07 Pneumococcal Vaccine: 50+ Years Completed 06/04/2023, 01/28/2013, 06/11/2006 HIV Screening Completed 06/13/2025, 06/0 05/2022, 06/12/2020 HIB Vaccines Aged Out No longer eligi ble based on patient's age to complete this topic HPV Vaccines Aged Out No longer eligi ble based on patient's age to complete this topic IPV Vaccines Aged Out No longer eligi ble based on patient's age to complete this topic Meningococcal B Vaccine Aged Out No l onger eligible based on patient's age to complete this topic Meningococcal Vaccine Aged Out No eveline andria eligible based on patient's age to complete this topic RSV under 20 months Aged Out No longe r eligible based on patient's age to complete this topic Rotavirus Vaccines Aged Out No longer eligible based on patient's age to complete this topic Procedures Procedure Name Priority Date/Time Associated Diagnosis Comments POCT PAUL-14 URINE DRUG SCREEN Routine 08/08/2025 1:23 PM EDT Opioid type dependence, continuous (CMS/HCC) HIV 1/2 ANTIGEN/ANTIBODY, FOURTH GENERATION W/RFL Routine 06/13/2025 10:55 AM EDT Routine screening for STI (sexually transmitted infection) LIPID PANEL WITH REFLEX TO DIRECT LDL Routine 06/13/2025 10:55 AM EDT Essential hypertension from Last 3 Months or Most Recently Relevant to Health Maintenance Results * (ABNORMAL) POCT PAUL-14 Urine Drug Screen (08/08/2025 1:23 PM EDT) THC Negative Negative Cocaine Screen, Urine Negative Negative Opiate Screen, Urine Negative Negative Methamphetamine Screen Urine Negative Negative Amphetamine Screen, Urine Negative Negative Benzodiazepines Screen, Urine Negative Negative Barbiturate Screen, Urine Negative Negative Methadone Screen, Urine Negative Negative Buprenophine Screen, Urine Positive(A) Negative TCA, Urine Negative Negative MDMA Urine Negative Negative ng/mL Oxycodone Screen, Urine Negative Negative Phencyclidine (PCP), Urine Negative Negative Fentanyl, Urine Negative Negative Urine Urine specimen obtained by clean catch procedure / Unknown 08/08/2025 1:23 PM EDT Gui Ramirez MD POINT OF CARE TEST ENTER/EDIT ORDERABLES Final Result * (ABNORMAL) Lipid Panel with Reflex to Direct LDL (06/13/2025 10:55 AM EDT) Triglycerides 200(H) <150 mg/dL [facility] Comment:Desirable Triglyceri de: less than 150 mg/dLBorderline High Triglyceride 150-199 mg/dLHigh Triglyceride: 200-499 mg/dLVery High Triglyceride: greater than or equal to 5OO mg/dL Cholesterol 169 <200 mg/dL [facility] Comment:Desirable Cholestero l: less than 200 mg/dLBorderline High Cholesterol: 200-239 mg/dLHigh Cholesterol: greater than 239 mg/dL LDL Cholesterol Calculated 78 <100 mg/dL [facility] Comment:Desirable LDL: less than 100 mg/dLNear Optimal/Above Optimal LDL: 110- 129 mg/dLBorderline High LDL: 130-159 mg/dLHigh LDL: 160-189 mg/dLVery High LDL: greater than or equal to 190 mg/dL HDL Cholesterol 51 >40 mg/dL [facility] Comment:Desirable HDL: great er than 40 mg/dL Note: This HDL assay may give artificially low results in patients with liver disease. Blood 06/13/2025 10:5 5 AM EDT 06/13/2025 1:22 PM EDT us Elayne Alfredo MD LAB BLOOD ORDERABLES Final Resul t [facility] [address] [place] [phone] [phone] * HIV-1/2 Antigen and Antibodies, Fourth Generation, with Reflexes (06/13/2025 10:55 AM EDT) HIV AB/AG Nonreactive Nonreactive [facility] Comment:HIV-1 p24 Ag and/or HIV-1/HIV-2 Ab not detected.A test result that is nonreactive does not exclude thepossibility of exposure to or infection with HIV-1 and/orHIV-2. Nonreactive results in this assay for individualswith prior exposure to HIV-1 and/or HIV-2 may be due toantigen and antibody levels that are below the limit ofdetection of this assay.The [employer] HIV Ag/Ab Combo assay result andsupplemental assay results should be interpreted inconjunction with the patient's clinical presentation,history and other laboratory results. If the results areinconsistent with clinical evidence, additional testing issuggested to confirm the result. Venous blood specimen / Unknown 06/13/2025 10:55 AM EDT 06/13/2025 1:22 PM EDT us Elayne Alfredo MD LAB BLOOD ORDERABLES Final Resul t [facility] [address] [place] [address] [phone] from Last 3 Months or Most Recently Relevant to Health Maintenance Insurance [email or web address] Care Teams Bun Panner Relationship Specialty Start Date End Date Elayne Alfredo MD [address] [place] [phone] PCP - General Family Medicine 11/16/18
--- OUTSIDE RECORDS SUMMARY | 2025-11-01 14:56 | XMS_ITS | Encounter Summary ---
Author Organization [employer] Address [address] [place] [address] [address] [place] [address] Care Team Providers Care Bundle Tier Name Role Phone Elayne Alfredo MD Primary Care Provider Reason for Visit * Reason Comments Med Refill Encounter Details Date Type Department Care Team (Late st Contact Info) Description 05/12/2023 Refill [facility] [address] [place] [address] [phone] Edgar Tejada MD [address] [place] [address] [phone] Opioid dependence, uncomplicated (CMS/[facility]) Social History Tobacco Use Types Packs/Day Years Used Date Smoking Tobacco: Former Cigarettes Smokeless Tobacco: Never Sex and Gender Information Value Date Recorded Sex Assigned at Male 09/15/2022 10:15 AM EDT Legal Sex Male 10:15 AM EDT Gender Identity Male 09/15/2022 10:15 AM EDT Sexual Orientation Straight 09/15/2022 10 :15 AM EDT documented as of this encounter Plan of Treatment Upcoming Encounters Date Type Department Care Team (Late st Contact Info) Description 11/21/2025 1:15 PM EST Office Visit [facility] [address] [place] [address] [phone] Elayne Alfredo MD [address] [place] [address] [phone] 12/26/2025 1:00 PM EST Office Visit [facility] [address] [place] [phone] Edgar Tejada MD [address] [place] [address] [phone] documented as of this encounter Visit Diagnoses Diagnosis Opioid dependence, uncomplicated (CMS/HCC) (HCC) documented in this encounter Care Teams Bundle Tier Relationship Specialty Start Date End Date Elayne Alfredo MD [address] [place] [address] PCP - General Family Medicine 11/16/18 documented as of this encounter
--- OUTSIDE RECORDS SUMMARY | 2025-11-01 14:56 | XMS_ITS | Encounter Summary ---
Author Organization [employer] Address [address] [place] [address] Care Team Providers Care Product Marketer Name Role Phone Elayne Alfredo MD Primary Care Provider [phone] Encounter Details Date Type Department Care Team ([facility] st Contact Info) Description 09/15/2024 Telephone [facility] [address] [place], [place] [phone] Elayne Alfredo MD [address] [place], [place] [phone] Social History Tobacco Use Types Packs/Day Years [...] with others, in a hotel, in a snf, living outside on the street, on a [...] Description 11/21/2025 1:15 PM EST Office Visit [facility] [address] [place] [phone] Elayne Alfredo MD [address] [place] [phone] 12/26/2025 1:00 PM EST Office Visit [facility] [address] [place] [phone] Edgar Tejada MD [address] [place] [phone] documented as of this encounter Visit Diagnoses Not on filedocumented in this encounter Additional Health Concerns Assessment Noted Time PHQ-9 Depression Total Score: 2 06/04/20 23 11:01 AM EDT documented as of this encounter Care Teams Product Marketer Relationship Specialty Start Date End Date Elayne Alfredo MD [address] [place] [phone] PCP - General Family Medicine 11/16/18 documented as of this encounter
--- OUTSIDE RECORDS SUMMARY | 2025-11-01 14:56 | XMS_ITS | Encounter Summary ---
Author Organization [employer] Address [address] [facility] [address] [place] [address] Care Team Providers Care Supervisor [address] Name Role Phone Elayne Alfredo MD Primary Care Provider [phone] Reason for Referral * Consultation (Routine) - Authorized Specialty Diagnoses / Procedures Referred By Jocelin jackson Referred To Contact Cardiology Diagnoses Coarctation of aorta Other cardiomyopathy (HCC) Bicuspid aortic valve Peripheral vascular disease (CMS/HCC) Elayne Alfredo MD [address] [place] [address] Phone: tel: fax: [facility] Referral ID Status Reason Start Date Expiration Date Visits Requested Visits Authorized [id number] Authorized Specialty Services Required 07/14/2025 07/14/2026 6 6 Encounter Details Date Type Department Care Team (Late st Contact Info) Description 07/14/2025 Orders Only [facility] [address] [place], [place] [phone] Elayne Alfredo MD [address] [place], [place] [phone] Coarctation of aorta (Primary Dx); Other cardiomyopathy (CMS/HCC); Bicuspid aortic valve; Peripheral vascular disease (CMS/HCC) Social History Tobacco Use Types Packs/Day Years Used Date Smoking Tobacco: Former Cigarettes Passive Smoke Exposure: Past Smokeless Tobacco: Never Alcohol Answer Date Recorded How often do [...] Description 11/21/2025 1:15 PM EST Office Visit [facility] [address] [place] [phone] Elayne Alfredo MD [address] [place] [phone] 12/26/2025 1:00 PM EST Office Visit [facility] [address] [place] [address] Edgar Tejada MD [address] [place] [address] Scheduled Referrals Name Type Priority Associated Diagnoses Orde r Schedule Referral to Cardiology Outpatient Referral Routine Coarctation of aorta Other cardiomyopathy (CMS/HCC) Bicuspid aortic valve Peripheral vascular disease (CMS/HCC) Expected: 07/14/2025 (Approximate), Expires: 07/14/2026 documented as of this encounter Visit Diagnoses Diagnosis Coarctation of aorta- Primary Other cardiomyopathy (HCC) Bicuspid aortic valve Congenital insufficiency of aortic valve Peripheral vascular disease (CMS/HCC) Unspecified peripheral vascular disease documented in this encounter Additional Health Concerns Assessment Noted Time PHQ-9 Depression Total Score: 14 025 1:08 PM EDT documented as of this encounter Care Teams Supervisor [address] Relationship Specialty Start Date End Date Elayne Alfredo MD [address] [place] [address] PCP - General Family Medicine 11/16/18 documented as of this encounter
--- OUTSIDE RECORDS SUMMARY | 2025-11-01 14:56 | XMS_ITS | Encounter Summary ---
Author Organization [employer] Address [address] [place] [address] [address] [place] [address] Care Team Providers Care Health Promotion Specialist Name Role Phone Elayne Alfredo MD Primary Care Provider [phone] Reason for Visit * Reason Comments Med Refill Encounter Details Date Type Department Care Team (Late st Contact Info) Description 11/20/2022 Refill [facility] [address] [place], [place] [phone] Elayne Alfredo MD [address] [place], [place] [phone] Chronic obstructive pulmonary disease, unspecified COPD type (CMS/HCC) (Primary Dx); Generalized anxiety disorder with panic attacks Social History Tobacco Use Types Packs/Day Years Used Date Smoking Tobacco: Never Assessed Sex and Gender Information Value Date Recorded Sex Assigned at Male 09/15/2022 10:15 AM EDT Legal Sex Male 10:15 AM EDT Gender Identity Male 09/15/2022 10:15 AM EDT Sexual Orientation Straight 09/15/2022 10 :15 AM EDT documented as of this encounter Plan of Treatment Upcoming Encounters Date Type Department Care Team (Late st Contact Info) Description 11/21/2025 1:15 PM EST Office Visit [facility] [address] [place] [address] [phone] Elayne Alfredo MD [address] [place] [address] [phone] 12/26/2025 1:00 PM EST Office Visit [facility] [address] [place] [address] [phone] Edgar Tejada MD [address] [place] [address] [place] [phone] documented as of this encounter Visit Diagnoses Diagnosis Chronic obstructive pulmonary disease, unspecified COPD type (CMS/HCC) (HCC)- Primary Generalized anxiety disorder with panic attacks documented in this encounter Care Teams Health Promotion Specialist Relationship Specialty Start Date End Date Elayne Alfredo MD [address] [place] [address] PCP - General Family Medicine 11/16/18 documented as of this encounter
--- OUTSIDE RECORDS SUMMARY | 2025-11-01 14:56 | XMS_ITS | Encounter Summary ---
Author Organization [employer] Address [address] [place] [address] Care Team Providers Care Health Therapist Name Role Phone Elayne Alfredo MD Primary Care Provider [phone] Encounter Details Date Type Department Care Team ([facility] st Contact Info) Description 06/14/2025 Orders Only [facility] [address] [place], [place] [phone] Elayne Alfredo MD [address] [place], [place] [phone] Social History Tobacco Use Types Packs/Day Years [...] with others, in a hotel, in a nursing home, living outside on the street, on [...] Description 11/21/2025 1:15 PM EST Office Visit [facility] [address] [place] [phone] Elayne Alfredo MD [address] [place] [id number] 12/26/2025 1:00 PM EST Office Visit [facility] [address] [place] [phone] Edgar Tejada MD [address] [place] [id number] documented as of this encounter Visit Diagnoses Not on filedocumented in this encounter Additional Health Concerns Assessment Noted Time PHQ-9 Depression Total Score: 2 06/04/20 23 11:01 AM EDT documented as of this encounter Care Teams Health Therapist Relationship Specialty Start Date End Date Elayne Alfredo MD [address] [place] [phone] PCP - General Family Medicine 11/16/18 documented as of this encounter
== END 2025-11-01 12:06 | disposition home or self-care (01) ==
LOC: HO.HGI 11:14
PROVIDERS: PCP Family Medicine; Visit Provider Nurse Practitioner
DX: Z01.818 Encounter for other preprocedural examination (principal); Z12.11 Encounter for screening for malignant neoplasm of colon; K59.00 Constipation, unspecified; R14.0 Abdominal distension (gaseous); F11.21 Opioid dependence, in remission
CPT/HCPCS: 99203

== ENCOUNTER → 2025-11-01 11:13 | Outpatient (BNVA) | payer MEDICAID, SELFPAY | PROVIDERS: PCP Family Medicine; Visit Provider Nurse Practitioner | DX: Z01.818 Encounter for other preprocedural examination (principal); F11.20 Opioid dependence, uncomplicated | CPT/HCPCS: 99212 ==